=== PATIENT | male | born 1960 | race Two or more races ===

== ENCOUNTER → 2016-05-02 | Outpatient (REF) | payer OTHER ==
[2016-05-03 12:10] LABS: CALCIUM OXALATE CRYSTALS SMALL
== END ==
LOC: M LAB REF 15:53
PROVIDERS: ATTEND Nurse Practitioner Women's Health
DX: R97.20 Elevated prostate specific antigen [PSA] (principal)

== ENCOUNTER → 2016-05-23 | Outpatient (REF) | payer OTHER ==
[2016-05-23 13:44] LABS: BASO % 0.9 % (0.0-1.0); EOS # 0.2 K/mm3 (0.0-0.50); EOS % 3.4 % (0.0-3.0); LARGE UNSTAINED CELL # 0.1 K/mm3 (0.0-0.4); LARGE UNSTAINED CELL % 2.2 % (0.0-4.0); LYMPH # 0.9 K/mm3 (1.5-4.5); LYMPH % 16.7 % (24.0-44.0); MEAN CORPUSCULAR HEMOGLOBIN 32.6 pg (27.0-33.0); MEAN CORPUSCULAR HGB CONC 33.9 g/dl (32.0-36.5); MEAN CORPUSCULAR VOLUME 96.4 fl (80.0-96.0); MONO # 0.4 K/mm3 (0.0-0.8); MONO % 7.8 % (0.0-5.0); NEUTROPHILS # 3.4 K/mm3 (1.8-7.7); PLATELET COUNT, AUTOMATED 379 k/mm3 (150-450); RED CELL DISTRIBUTION WIDTH 12.4 % (11.5-14.5); WHITE BLOOD COUNT 4.9 K/mm3 (4.0-10.0)
[2016-05-23 13:55] LABS: FOLATE 9.3 NG/ML (>5.4); VITAMIN B12 LEVEL 285 PG/ML (247-911)
[2016-05-23 14:02] LABS: ALBUMIN/GLOBULIN RATIO 1.21 (1.00-1.93); ALKALINE PHOSPHATASE 112 U/L (45-117); ALT/SGPT 40 U/L (12-78); ANION GAP 8 MEQ/L (8-16); AST/SGOT 41 U/L (15-37); BILIRUBIN,TOTAL 0.5 MG/DL (0.2-1.0); BLOOD UREA NITROGEN 12 MG/DL (7-18); CALCIUM LEVEL 9.2 MG/DL (8.5-10.1); CARBON DIOXIDE LEVEL 27 MEQ/L (21-32); CHLORIDE LEVEL 88 MEQ/L (98-107); CREATININE FOR GFR 1.25 MG/DL (0.70-1.30); GLOMERULAR FILTRATION RATE > 60.0 (>56); GLUCOSE, FASTING 117 MG/DL (70-105); POTASSIUM SERUM 4.7 MEQ/L (3.5-5.1); SODIUM LEVEL 123 MEQ/L (136-145); TOTAL PROTEIN 7.3 GM/DL (6.4-8.2)
[2016-05-23 14:32] LABS: ERYTHROCYTE SEDIMENTATION RATE 15 mm/hr (0-20)
[2016-05-25 00:06] LABS: Lyme Disease IgG/IgM Antibodie <0.91 ISR (0.00-0.90); Lyme Disease IgM Ab Quantitati <0.80 index (0.00-0.79)
[2016-05-27 13:06] LABS: ALBUMIN 4.23 GM/DL (3.29-5.55); ALBUMIN % 57.9 % (55.8-66.1); GAMMA GLOBULIN % 15.5 % (11.1-18.8)
== END ==
LOC: M LABNEURO 12:50
PROVIDERS: ATTEND Psychiatry & Neurology Neurology
DX: G62.9 Polyneuropathy, unspecified (principal)

== ENCOUNTER → 2018-02-12 | Outpatient (REF) | payer OTHER ==
[2018-02-13 14:44] LABS: TOTAL PROTEIN,RANDOM URINE 25.1 MG/DL (0.0-12.0)
== END ==
LOC: M LAB REF 12:15
PROVIDERS: ATTEND Internal Medicine Nephrology
DX: E87.1 Hypo-osmolality and hyponatremia (principal)

== ENCOUNTER → 2018-12-18 | Outpatient (REF) | payer OTHER ==
[2018-12-18 17:27] LABS: CREATININE,RANDOM URINE 92.8 MG/DL; TOTAL PROTEIN,RANDOM URINE 9.8 MG/DL (0.0-12.0)
== END ==
LOC: M LAB REF 16:55
PROVIDERS: ATTEND Internal Medicine Nephrology
DX: E87.1 Hypo-osmolality and hyponatremia (principal)

== ENCOUNTER → 2018-12-29 | Outpatient (CLI) | payer OTHER ==
[~2018-12-29] MED LIST: ISOVUE-370 76% 100ML VIAL (Q9967) As Ordered ONE
--- NOTE | 2018-12-30 04:50 | REP ---
Clinical: Follow up abnormal findings. Technique: Axial noncontrast images from the thoracic inlet to the upper abdomen with coronal and sagittal re-formations. Comparison: 05/07/2016, 04/29/2011. Findings: The bilateral lung banda are well-aerated and clear. No consolidation, significant nodule or mass lesion appreciated. Small calcified granuloma in the anterior right upper lobe (image 38) noted. No effusion. No pneumothorax. No adenopathy. Thoracic aorta and pulmonary vasculature appear normal. Atherosclerotic changes to the coronary arteries noted without cardiomegaly or pericardial effusion. Limited upper abdomen demonstrates normal bilateral adrenal glands. Surrounding musculoskeletal structures are intact. Impression: No acute/significant mediastinal or pleuroparenchymal process appreciated. Electronically Signed by Domingo Parra MD 12/30/2018 04:41 A
== END ==
LOC: M RAD 08:52
PROVIDERS: ATTEND Internal Medicine Nephrology
DX: R91.8 Other nonspecific abnormal finding of lung field (principal)
CPT/HCPCS: 71260; Q9967

== ENCOUNTER → 2019-01-01 | Outpatient (REF) | payer OTHER ==
[2019-01-01 13:54] LABS: OSMOLALITY URINE 240 MOSM/KG (500-800)
[2019-01-01 14:06] LABS: CREATININE,RANDOM URINE < 13.0 MG/DL; SODIUM,RANDOM URINE 95 MEQ/L
== END ==
LOC: M LAB REF 12:56
PROVIDERS: ATTEND Internal Medicine Nephrology
DX: E87.1 Hypo-osmolality and hyponatremia (principal)

== ENCOUNTER → 2020-03-24 | Outpatient (CLI) | payer OTHER ==
[~2020-03-24] MED LIST changes: +B-12100021 PO; +CARV3.12 PO; -ISOVUE-370 76% 100ML VIAL (Q9967) As Ordered ONE; +SPIR-10 PO
== END ==
LOC: M LABSMTC 10:21
PROVIDERS: ATTEND Anesthesiology
DX: Z01.812 Encounter for preprocedural laboratory examination (principal); Z20.822 Contact with and (suspected) exposure to COVID-19

== ENCOUNTER 2020-03-29 10:59 | Day surgery (SDC) | payer OTHER ==
[~2020-03-29] VITALS: Ht 175.3 cm; Wt 81.6 kg
[~2020-03-29 10:59] MED LIST changes: +LIDOCAINE 2% 100MG/5ML SDV (FOR ANES.) As Ordered ONE; +NS 1,000 ML IV ONE; +propofoL 200 MG/20 ML VIAL As Ordered ONE
--- OUTSIDE RECORDS SUMMARY | 2020-03-29 11:04 | CCD ---
Author Author [facility] Organization [facility] Address Unknown Phone Unavailable Care Team Providers Care Population Health Coach Name Role Phone Fadumo, Tyler Norton PA-C Unavailable Unavailable Fadumo, Tyler Norton PA-C Unavailable Unavailable Fadumo, Tyler Norton PA-C Unavailable Unavailable Fadumo, Tyler Norton PA-C Unavailable Unavailable Fadumo, Tyler Norton PA-C Unavailable Unavailable Fadumo, Tyler Norton PA-C Unavailable Unavailable Fadumo, Tyler Norton PA-C Unavailable Unavailable Fadumo, Tyler Norton PA-C Unavailable Unavailable Fadumo, Tyler Norton PA-C Unavailable Unavailable Fadumo, Tyler Norton PA-C Unavailable Unavailable Fadumo, Tyler Norton PA-C Unavailable Unavailable REINALDO, F SARATH DO Unavailable Unavailable REINALDO, F SARATH DO Unavailable Unavailable REINALDO, F SARATH DO Unavailable Unavailable REINALDO, F SARATH DO Unavailable Unavailable REINALDO, F SARATH DO Unavailable Unavailable REINALDO, F SARATH DO Unavailable Unavailable REINALDO, F SARATH DO Unavailable Unavailable REINALDO, F SARATH DO Unavailable Unavailable REINALDO, F SARATH DO Unavailable Unavailable REINALDO, F SARATH DO Unavailable Unavailable REINALDO, F SARATH DO Unavailable Unavailable REINALDO, F SARATH DO Unavailable Unavailable REINALDO, F SARATH DO Unavailable Unavailable REINALDO, F SARATH DO Unavailable Unavailable REINALDO, F SARATH DO Unavailable Unavailable REINALDO, F SARATH DO Unavailable Unavailable REINALDO, F SARATH DO Unavailable Unavailable REINALDO, F SARATH DO Unavailable Unavailable REINALDO, F SARATH DO Unavailable Unavailable REINALDO, F SARATH DO Unavailable Unavailable REINALDO, F SARATH DO Unavailable Unavailable REINALDO, F SARATH DO Unavailable Unavailable REINALDO, F SARATH DO Unavailable Unavailable REINALDO, F SARATH DO Unavailable Unavailable REINALDO, F SARATH DO Unavailable Unavailable REINALDO, F SARATH DO Unavailable Unavailable REINALDO, F SARATH DO Unavailable Unavailable REINALDO, F SARATH DO Unavailable Unavailable REINALDO, F SARATH DO Unavailable Unavailable REINALDO, F SARATH DO Unavailable Unavailable REINALDO, F SARATH DO Unavailable Unavailable REINALDO, F SARATH DO Unavailable Unavailable Re-disclosure Warning The records that you are about to access may contain information from federally-assisted alcohol or drug abuse programs. If such information is present, then the following federally mandated warning applies: This information has been disclosed to you from records protected by federal confidentiality rules (42 CFR part 2). The federal rules prohibit you from making any further disclosure of this information unless further disclosure is expressly permitted by the written consent of the person to whom it pertains or as otherwise permitted by 42 CFR part 2. A general authorization for the release of medical or other information is NOT sufficient for this purpose. The Federal rules restrict any use of the information to criminally investigate or prosecute any alcohol or drug abuse patient.The records that you are about to access may contain highly sensitive health information, the redisclosure of which is protected by Article 27-F of the [facility] Public Health law. If you continue you may have access to information: Regarding HIV / AIDS; Provided by facilities licensed or operated by the [facility] Office of Mental Health; or Provided by the [facility] Office for People With Developmental Disabilities. If such information is present, then the following [facility] mandated warning applies: This information has been disclosed to you from confidential records which are protected by state law. State law prohibits you from making any further disclosure of this information without the specific written consent of the person to whom it pertains, or as otherwise permitted by law. Any unauthorized further disclosure in violation of state law may result in a fine or senior living sentence or both. A general authorization for the release of medical or other information is NOT sufficient authorization for further disc losure. Encounters Encounter Providers Location Date Indications Data Source(s ) Emergency Attender: SARATH GARCÍA DO 2019 07:17:00 PM EST - 04/10/2019 10:56:00 PM [facility] Patient discharged. Emergency Attender: Errol Thorne PA-C 09:54:00 AM EST - 04/04/2019 11:20:00 AM [facility] Patient discharged. Medications Medication Brand Name Start Date Product Form Dose Route Admi nistrative Instructions Pharmacy Instructions Status Indications Reaction Description Data Source(s) 4 mg 04/11/2019 12:00:00 AM EST tablet 12 TAKE ONE TABLET BY MOUTH THREE TIMES A DAY NEEDED FOR NAUSEA TAKE ONE TABLET BY MOUTH THREE TIMES A D AY NEEDED FOR NAUSEA SOLD: 04/11/2019 [facility] 20 mg 04/11/2019 12:00:00 AM EST capsule,delayed release (DR/EC) 30 TAKE ONE CAPSULE BY MOUTH EVERY DAY TAKE ONE CAPSULE BY MOUTH EVERY DAY SOLD: 04/11/2019 [facility] 4 mg 04/04/2019 12:00:00 AM EST tablet 9 TAKE ONE TABLET BY MOUTH EVERY 8 HOURS NEEDED FOR NAUSEA TAKE ONE TABLET BY MOUTH EVERY 8 HOURS A S NEEDED FOR NAUSEA SOLD: 04/04/2019 [facility] 1 gram 12/23/2018 12:00:00 AM EST tablet 60 TAKE ONE TABLET BY MOUTH TWICE A DAY TAKE ONE TABLET BY MOUTH TWICE A DAY SOLD: 02/23/2019 [facility] Insurance Providers Payer name Policy type / Coverage type Policy ID Covered libertarian ID Covered libertarian's relationship to manjarrez Policy Manjarrez Plan Information 'S ADMINISTRATION [id number] SP [id number] [facility] [id number] SP [id number] [facility] O [id number] S [id number] [facility] REG O [id number] S [id number] [facility] HUMANA - O/P [id number] 18 [id number] [facility] F [id number] SELF [id number] [place] F [id number] SELF [id number] [place] Claims F [id number] SELF [id number] Lidia [id number] [facility] [id number] SP [id number] PI PI N REGIONAL CLAIMS AUSTYN-O/P [id number] [id number] [facility] F [id number] SELF [id number] [employer]/ AD O [id number] S [id number] [facility] N REGIONAL CLAIMS AUSTYN-RECURRING [id number] 18 [id number] [facility] PI PI [facility] [id number] Lidia [id number] [facility] F [id number] SELF [id number] [facility] [id number] Lidia [id number] [facility] F [id number] SELF [id number] Problems, Conditions, and Diagnoses Code Display Name Description Problem Type Effective Dates Data Source(s) I10 Essential (primary) hypertension Essential (primary) h ypertension Diagnosis 04/10/2019 07:17:00 PM [facility] D40113 Nicotine dependence, cigarettes, uncompl icated Nicotine dependence, cigarettes, uncomplicated Diagnosis 04/10/2019 07:17:00 PM [facility] G8929 Other chronic pain Other chronic pain Diagnosis 07:17:00 PM [facility] R1084 Generalized abdominal pain Generalized abdominal pain Diagnosis 04/10/2019 07:17:00 PM [facility] R1010 Upper abdominal pain, unspecified Upper abdomina l pain, unspecified Diagnosis 04/10/2019 07:17:00 PM [facility] R1032 Left lower quadrant pain Left lower quadrant pain Diag nosis 04/04/2019 09:54:00 AM [facility] R1031 Right lower quadrant pain Right lower quadrant pain Di agnosis 04/04/2019 09:54:00 AM [facility] R1011 Right upper quadrant pain Right upper quadrant pain Di agnosis 04/04/2019 09:54:00 AM [facility] Results ID Date Data Source [id number] 03/24/2020 09:30:00 AM EST [facility] Name Value Range Interpretation Code Description Data Ruth rce(s) Supporting Document(s) SARS coronavirus 2 RNA Not Detected [facility] This lab was ordered by [facility] and reported by [facility]. ID Date Data Source [id number] 02/24/2020 12:00:00 AM EST [facility] Nils Licona MD Patient Name: MINAL WHITMORE Date of : 1960[place] [address] Date of Exam: 02/24/2020#: Fax: [phone] EXAM: CERVICAL SPINE (4 VIEWS) XRAYCLINICAL INFORMATION: Disability determination.Four views.There are no prior cervical spine xrays for comparison.There is moderate C5-6 and C6-7 disc space narrowing with bogmjihm-de-njjnvqnw disc space narrowing at all other levels. Vertebral bodyheight and alignment is within normal limits. The facet joints are wellaligned bilaterally. There is a slight levoconvex cervical curve.Calcifications are seen in the soft tissues in the paraspinal regionbilaterally.IMPRESSION:1. Chronic changes as described above.2. Soft tissue calcifications suggestive of carotid arterialcalcifications. Consider f ollowup with carotid ultrasound.ABHAY Brian/Scot you for referring ISABELLA WHITMORE to our office. Electronically Signed - YOLANDE DOYLE DO 02/24/20 13:15 Name Value Range Interpretation Code Description Data Ruth rce(s) Supporting Document(s) ID Date Data Source [id number] 06/14/2019 12:00:00 AM EDT [facility] Name Value Range Interpretation Code Description Data Ruth rce(s) Supporting Document(s) 2019 Novel Coronavirus RNA [facility] This lab was ordered by [facility] and reported by [facility]. ID Date Data Source [id number] 04/11/2019 01:05:00 PM [facility] [address] [address] RESPIRATORY CARE REPORT ==== ---------NAME------- NUMBER SEX AGE ADMIT DISC. XRAY# F/C TYPELEAKE ISABELLA Wilkes [id number] M 58 04/10/19 04/10/19 [id number] SB4 E/R DATE OF : 1960 M/R# [id number] #: [id number] LOCATION: EMERGENCY DEPT EKG [id number] COMPLE TE:04/11/19 01:11 VMT [id number] PHYSICIAN: REINALDO CALHOUN Name Value Range Interpretation Code Description Data Ruth rce(s) Supporting Document(s) ID Date Data Source [id number] 04/10/2019 07:17:00 PM EST [facility] 1 OrderSheet [facility] Emergency Department [address] [place] [address] Phone #: ext- [phone] 04/10/2019 19:13 Patient: ISABELLA WHITMORE Sex: M : 1960 Age: 58yWEIGHT:78.4 kg (S)ALLERGIES: No Known Drug AllergyCHIEF COMPLAINT: chest pain, upper abdominal painDIAGNOSIS: Abdominal painLAB ORDERSOrder Description Priority Entered Acknowledged InitialedAmylase STAT 19:49 04/10/2019 20:17 Saloni Gamez R.N. Physician;CBC w Diff STAT 19:49 04/10/2019 Ack'd: 20:08 Saloni 20:17 Saloni Gamez R.N. Physician;CMP STAT 19:49 04/10/2019 Ack'd: 20:08 Saloni 20:17 Saloni Gamez R.N. Physician;Lipase STAT 19:49 04/10/2019 Ack'd: 20:08 Saloni 20:17 Saloni Gamez R.N. Physician;Urinalysis (Clean STAT 19:49 04/10/2019 20:07 Saloni NixonirCjarrell) Sarath Gamez R.N. Physician;Troponin-T STAT 19:49 04/10/2019 Ack'd: 20:08 Saloni 20:17 Saloni Gamez R.N. Physician;H Pylori AB STAT 19:51 04/10/2019 Ack'd: 20:08 Saloni 20:17 Saloni Gamez R.N. Physician;Sed. Rate STAT 19:51 04/10/2019 Ack'd: 20:08 Saloni 20:17 Saloni Gamez RDelonte Physician;CRP STAT 19:51 04/10/2019 Ack'd: 20:08 Saloni 20:17 Saloni Gamez R.N. Physician;DIAGNOSTIC STUDY ORDERSOrder Description Priority Entered Acknowledged InitialedCT ABD PEL STAT 19:49 04/10/2019 Ack'd: 20:08 Saloni 21:56 Saloni Riojas 2 OrderSheet [facility] Emergency Department [address] [place] [address] Phone #: ext- [phone] 04/10/2019 19:13 Patient: ISABELLA WHITMORE Sex: M : 1960 Age: 58yW/Oral/IV Contrast Sarath Gamez R.N.(Oxygen?(No)) Physician;(IV?(Yes)) Reason for Study: Abdominal PainMEDICATION/IV/DRIP/FLUID ORDERSOrder Description Priority Entered Acknowledged InitialedIV NS : 250 mL/hr 19:49 04/10/2019 Ack'd: 20:07 Saloni 20:17 Saloni Riojas(NOW) Sarath Gamez R.N. Physician;Zofran IVP 4 mg 19:49 04/10/2019 Ack'd: 20:07 Saloni 20:17 Saloni Gamez R.N. Physician;Dilaudid IVP 1 mg 19:49 04/10/2019 Ack'd: 20:07 Saloni 20:20 Saloni Riojas(HIGH ALERT Sarath Gamez R.N.MEDICATION) Physician;GENERAL ORDERSOrder Description Priority Entered Acknowledged InitialedEKG 19:49 04/10/2019 20:07 Saloni Gamez R.N. Physician;[Electronically signed by Sarath García Physician (03:30 04/11/2019)][Electronically signed by Saloni Schrader R.N. (06:42 04/11/2019)][Electronically locked by Saloni Schrader R.N. (06:42 04/11/2019)] Name Value Range Interpretation Code Description Data Ruth rce(s) Supporting Document(s) ID Date Data Source [id number] 04/10/2019 07:17:00 PM EST [facility] 1 Medication Reconciliation Report [facility] Emergency Department [address] [place] [address] Phone #: itt- [phone] 04/10/2019 19:13 Patient: ISABELLA WHITMORE Sex: M : 1960 Age: 58yWeight: 78.4 kgHeight/Length: 69 in.BMI: 25.5ALLERGIES: No Known Drug AllergyThe patient's Home Medications are listed below:CONTINUE TAKING THE FOLLOWING MEDICATIONS: Lisinopril Oral 20 mg, dailyThe source(s) of the original Home Medication information:Not obtained.The following Medications were given to the patient in the Emergency Department:IV NS IV Fluids bolus 0, then 250 mL/hr, administered: 04/10/2019 8:13:00 PMZofran [IVP] IVP 4 mg, administered: 04/10/2019 8:17:00 PMDilaudid [IVP] IVP 4 mg, administered: 04/10/2019 8:20:00 PMThe following Medications were prescribed to the patient:Zofran 4 mg tablet Take 1 tablet three times a day as needed for 4 days -- for nausea. Dispense 12 tablet.Refills: 0. Substitution permitted.[employer] [address] [place] [address]. .Prilosec OTC 20 mg tablet,delayed release Take 1 tablet once a day for 30 days -- Dispense 30 tablet.Refills: 0. Substitution permitted.[employer] [address] [place] [phone]. . -- Sarath García, Physician Name Value Range Interpretation Code Description Data Ruth rce(s) Supporting Document(s) ID Date Data Source [id number] 04/10/2019 07:17:00 PM EST [facility] 1 Medication Administration Record [facility] Emergency Department [address] [place] [address] Phone #: ext- [phone] 04/10/2019 19:13 Patient: ISABELLA WHITMORE Sex: M : 1960 Age: 58yWeight: 78.4 kgHeight/Length: 69 inBMI: 25.5ALLERGIES: No Known Drug Allergy Date/Time Medication Administered Medication OrderedStart IV NS IV NS : 250 mL/hr (NOW)20:13 04/10/2019 Dose: IV FluidsSaloni Gamez R.N. Rate: 250 mL/hr---- Dispensed: 1000 mL bagStop Site: #1 left AC22:46 04/10/2019Tina Shine Gamez R.N.Given ZOFRAN [IVP] (ONDANSETRON HCL) Zofran IVP 4 mg20:17 04/10/2019 Dose: 4 mg IVPTina Shine Gamez R.N. Site: #1 left ACGiven DILAUDID [IVP] (HYDROMORPHONE Dilaudid IVP 1 mg (HIGH ALERT20:20 04/10/2019 HCL) MEDICATION)Saloni Shine Gamez R.N. Dose: 4 mg IVP Site: #1 left AC Name Value Range Interpretation Code Description Data Ruth rce(s) Supporting Document(s) ID Date Data Source [id number] 04/10/2019 07:17:00 PM EST [facility] 1 General Instructions [facility] Emergency Department [address] [place] [address] Phone #: ext- [phone] 04/10/2019 19:13 Patient: ISABELLA WHITMORE Sex: M : 1960 Age: 58yChronic generalized abdominal pain.INSTRUCTIONS(High fiber diet.).Warnings: Further evaluation is necessary (endoscopy GI referral).SEDATIVE MEDICATION: You were given sedative medication during your visit. Do not drive or operatedangerous machinery.GENERAL WARNINGS: Return or contact your physician immediately if your condition worsens orchanges unexpectedly, if not improving as expected, or if other problems arise.Your Current Medications: Your current home medications have been reviewed.CONTINUE TAKING THE FOLLOWING MEDICATIONS:Lisinopril Oral : 20 mg daily.Prescription Medications:Zofran 4 mg tablet Take 1 tablet three times a day as needed for 4 days -- for nausea. Dispense 12 tablet.Refills: 0. Substitution permitted.[employer] [address] [phone]. .Prilosec OTC 20 mg tablet,delayed release Take 1 tablet once a day for 30 days -- Dispense 30 tablet.Refills: 0. Substitution permitted.[facility] [address] [place] [phone]. .Understanding of the discharge instructions verbalized by patient.Follow-up with: [facility] [place], , , [address], , [place], [address] Follow up Friday in two days. Call for the next available appointment. Reason for referral: evaluation.Summary of care provided to patient and family via paper. ADDITIONAL INFORMATIONUnknown Causes of Abdominal Pain (Male) 2 General Instructions [facility] Emergency Department [address] [place] [address] Phone #: ext- [phone] 04/10/2019 19:13 Patient: ISABELLA WHITMORE Sex: M : 1960 Age: 58yBased on your visit today, the exact cause of your abdominal pain is not clear. Your exam and testsdon't suggest a dangerous cause at this time. However, the signs of a serious problem may takemore time to appear. Although your evaluation was reassuring today, sometimes early in the courseof many conditions, exam and lab tests can appear normal. Therefore, it is important for you to watchfor any new symptoms or worsening of your condition.It may not be obvious what caused your symptoms. Pay attention to things that do seem to makeyour symptoms worse or better and discuss this with your doctor when you follow up.The evaluation of abdominal pain in the emergency department may only require an exam by thedoctor or it may include blood, urine or imaging studies, depending on many factors. Sometimesexams and tests can identify a cause but in many cases, a clear cause is not found. Further testing atfollow up visits may help to suggest a clear diagnosis.Home care Rest as much as you can until your next exam. Try to avoid any medicines (unless otherwise directed by your doctor), foods, activities, or other factors that may have contributed to your symptoms. Try to eat foods that you know that you have tolerated well in the past. Certain diets may be recommended for some conditions that cause abdominal pain. However, since the cause of your symptoms may not be clear, discuss your diet more with your healthcare provider or specialist for further recommendations. If you have diarrhea, it may help to avoid dairy (lactose) for the time being. A low fat, low fiber diet can also help. Eating several small meals per day as opposed to 2 or 3 larger meals may help. Avoid dehydration. Make sure to drink plenty of water. Other options include broth, soup, gelatin, sports drinks, or other clear liquids. Watch closely for anything that may make your symptoms worse or better. Pay close attention to symptoms below that may mean your condition is getting worse.Follow-up careFollow up with your healthcare provider if your symptoms are not improving, or as advised. In somecases, you may need more testing.When to seek medical adviceCall your healthcare provider right away if any of these occur: 3 General Instructions [facility] Emergency Department [address] [place] [address] Phone #: ext- [phone] 04/10/2019 19:13 Patient: ISABELLA WHITMORE Sex: M : 1960 Age: 58y Pain is becoming worse You are unable to take your medicines or can't keep water down due to excessive vomiting Swelling of the abdomen Fever of 100.4F (38C) or higher, or as directed by your healthcare provider Blood in vomit or bowel movements (dark red or black color) Jaundice (yellow color of eyes and skin) New onset of weakness, dizziness or fainting New onset of chest, arm, back, neck or jaw pain [id number] [employer]. [address] [place] [address]. All rights reserved. This information is not intended as asubstitute for professional medical care. Always follow your healthcare professional's instructions. You have been given the following additional information: Unknown Causes of Abdominal Pain (Male)(Electronically signed by Sarath García, Physician 04/11/2019 03:30) Name Value Range Interpretation Code Description Data Ruth rce(s) Supporting Document(s) ID Date Data Source [id number] 04/10/2019 07:17:00 PM EST [facility] 1 Clinical Report - Nurses [facility] Emergency Department [address] [place] [address] Phone #: [phone]- [phone] 04/10/2019 19:13 Patient: ISABELLA WHITMORE Sex: M : 1960 Age: 58yTRIAGEArrived by private vehicle. Historian: patient. Accompanied by spouse.Triage time: 19:15 04/10/2019.Chief Complaint: CHEST PAIN and BACK PAIN (diffuse abd pain, constipation).Onset. (abdominal pain for "weeks", chest pain for 1 week). ( seen here Friday and yesterday by PCP.Given "Powder to make him Poop", had a small BM yesterday). --19:25 04/10/19 Saloni Gamez R.N.Acuity: LEVEL 2.The patient has had a cough productive of yellow sputum. No fever.SEPSIS SCREEN: Negative (no infection suspected/documented). --19:31 04/10/19 Saloni Gamez R.N.19:29 04/10/19. BP: 142/97. MAP: 112. HR: 87. RR: 16. O2 saturation: 100%. Temp: 95.9 F. Pain levelnow: 10/27. --19:31 04/10/19 Saloni Gamez R.N.Weight: 78.4 kg stated. Height/Length: 69 inches Per Patient. BMI: 25.5. --19:18 04/10/19 Saloni Reeves R.N.MedicationsLisinopril Oral 20 mg, daily. --19:04/10/19 Saloni Gamez R.N.AllergiesNo Known Drug Allergy. --19:04/10/19 Saloni Gamez R.N.PROBLEMS:Back Pain.Abdominal Pain.Hypertension. --19:04/10/19 Saloni Gamez R.N.ADDITIONAL SURGERIES:Back Surgery. --19:04/10/19 Saloni Gamez R.N.HistoryPAST MEDICAL HX: No history of diabetes mellitus, heart disease or lung disease. Last oral intake bypatient was (Reports that he had pineapple for lunch and an omelet for breakfast).SOCIAL HX: Alcohol use. (Heavy use up until 1 month ago, Matthew Cooper and/or Beer). No drug use. Hewas offered HIV testing but declined and hepatitis C testing but declined. He has not traveled outside the.. 2 Clinical Report - Nurses [facility] Emergency Department [address] [place] [address] Phone #: ext- [phone] 04/10/2019 19:13 Patient: ISABELLA WHITMORE Sex: M : 1960 Age: 58y Infectious disease exposure: No infectious disease exposure. (has not been exposed to anyone who traveled to [place] in the past month). SELF HARM ASSESSMENT: Self harm assessment was performed. The patient answered "no" to the question(s) "Do you have thoughts of harming or killing yourself?" and "Have you recently had thoughts about harming or killing others?". ABUSE ASSESSMENT: No report of abuse. FALL RISK ASSESSMENT: Fall risk assessment completed. Risk factors identified include severe pain, nausea and dizziness. --19:31 04/10/19 Saloni Gamez R.N. SOCIAL HX: Current every day light tobacco smoker- less than 1/2 a pack per day. --20:21 04/10/19 Saloni Gamez R.N. SOCIAL HX: Smoker- current status unknown (smoking cessation information given.). --20:22 04/10/19 Saloni Gamez R.N. FAMILY HX: Negative. --19:42 04/10/19 Sarath García Physician.PHYSICAL [id number]:21 04/10/19. Ambulatory to room.GENERAL / NEURO / PSYCH: Alert. Oriented X 4. Appears anxious.HEENT: Mucous membranes are pink.RESPIRATORY: Respirations not labored.CVS: Normal sinus rhythm noted. Pulses within normal limits. Capillary refill less than 2 seconds.GI / : The patient has had nausea. Abdominal distention. Abdominal tenderness.EXTREMITIES: No lower extremity edema.SKIN: Skin is warm and dry. --20:21 04/10/19 Saolni Gamez R.N.NURSING PROGRESS NOTES19:17 04/10/19. Monitoring of patient in place. Patient gowned. Reassurance given. Call light placedin reach. Bed placed in lowest position. Brakes of bed on. --20:18 04/10/19 Saloni Gamez R.N. 19:53 04/10/19. Clean catch urine collected; sample sent to lab for urinalysis. Specimen labeled in the presence of the patient. --20:18 04/10/19 Saloni Gamez R.N. 20:11 04/10/2019 Site #1 started via IV in the left antecubital space with an 20g angiocath; three attempts. Saline lock flushed with 10 mL saline. --20:16 04/10/19 Saloni Gamez R.N. 20:13 04/10/2019 Started bag #1 1000 mL IV Fluids IV NS; at 250 mL/hr via site #1 via IV pump. Allergies verified and confirmed 5 rights. IV patency established. IV site checked: no pain, redness, or swelling. IV flushed thoroughly pre- and post-medication administration. Information reviewed with patient including reason for taking this medication. Verbalizes understanding. --20:17 04/10/19 Saloni Gamez R.N. 3 Clinical Report - Nurses [facility] Emergency Department [address] [place] [address] Phone #: ext- [phone] 04/10/2019 19:13 Patient: ISABELLA WHITMORE Sex: M : 1960 Age: 58y 20:17 04/10/2019 Zofran (Ondansetron HCl) IVP 4 mg given over 2 minute(s) via site #1. Allergies verified and confirmed 5 rights. IV patency established. IV site checked: no pain, redness, or swelling. IV flushed thoroughly pre- and post-medication administration. IVP given by RN. Information reviewed with patient. --20:17 04/10/19 Saloni Gamez R.N. Blood samples drawn by lab. --20:18 04/10/19 Saloni Gamez R.N. Reassurance given to the patient. The patient is resting quietly. Overall patient status is improved. ( Sipping gastro prep for CT scan.). RESPIRATORY: No respiratory distress. GI / : The patient reports nausea. SKIN: Skin is warm and dry. --20:19 04/10/19 Saloni Gamez R.N. 20:20 04/10/2019 Dilaudid (HYDROmorphone HCl) IVP 4 mg given over 5 minute(s) via site #1. IV patency established. IV site checked: no pain, redness, or swelling. IV flushed thoroughly pre- and post-medication administration. IVP given by RN. Information reviewed with patient and spouse including reason for taking this medication, precautions and sedative warning (diluted in 10 ml NS). --20:20 04/10/19 Saloni Gamez R.N. Patient transported to [place] by wheelchair with radiology clerk. --21:22 04/10/19 Noel Gamez RN 20:55 04/10/2019 Dilaudid IVP Response: no adverse reaction pain is improving. --22:55 04/10/19 Saloni Gamez R.N. 22:46 04/10/2019 IV Fluids IV NS via IV site #1 Discontinued: discontinued upon discharge. Total amount infused: 500 mL. IV patency established. IV site checked: no pain, redne ss, or swelling. IV flushed thoroughly. --22:56 04/10/19 Saloni Gamez R.N.DISPOSITION / DISCHARGE 22:45 04/10/2019 Site #1 removed upon discharge. Bandage applied. --22:50 04/10/19 Saloni Gamez R.N. Condition at departure: improved and stable. --22:50 04/10/19 Saloni Gamez R.N. 22:49 04/10/19. BP: 154/104. MAP: 120. HR: 79. RR: 16. O2 saturation: 99%. Temp: 96.2 F. Pain level now: 04/26. --22:50 04/10/19 Saloni Gamez R.N. Departure time: 22:55 04/10/2019. Reviewed medication(s). Prescription(s) sent electronically to pharmacy. Patient and spouse verbalized understanding. Written instructions provided in Greenlandic. The patient was discharged by the physician. He was discharged home and accompanied by spouse. He left ambulatory and via private vehicle. Spouse driving. --22:55 04/10/19 Saloni Gamez R.N. 4 Clinical Report - Nurses [facility] Emergency Department [address] [place] [address] Phone #: ext- [phone] 04/10/2019 19:13 Patient: ISABELLA WHITMORE Sex: M : 1960 Age: 58yLocked/Released at 04/11/2019 06:42 by Saloni Gamez R.N. Name Value Range Interpretation Code Description Data Ruth rce(s) Supporting Document(s) ID Date Data Source [id number] 0001 04/10/2019 07:17:00 PM [facility] 1 Clinical Report - Physicians/Mid Levels [facility] Emergency Department [address] [place] [address] Phone #: ext- [phone] 04/10/2019 19:13 Patient: ISABLELA WHITMORE Sex: M : 1960 Age: 58y Time Seen: 19:28 04/10/2019. Arrived- By private vehicle. Historian- patient. Disposition decision: 22:45 04/10/2019.HISTORY OF PRESENT ILLNESS Chief Complaint: CHEST PAIN. UPPER ABDOMINAL PAIN. This started weeks ago and is still present. It is described as "pain". No radiation. It is described as located in the upper abdomen, right part of the abdomen and lower quadrant of the abdomen and left part of the abdomen and lower quadrant of the abdomen and across the abdomen. At its maximum, severity described as 9 / 10. When seen in the E.D., severity described as 7 / 10. Modifying factors- worsened by exertion, movement, walking, cough and food. Not relieved by anything. The patient has had nausea. No vomiting, difficulty breathing or diaphoresis. Similar symptoms previously. Recent medical care: The patient was seen recently in the emergency department and office. ( ED last week and Vera yesterday).REVIEW OF SYSTEMSNo fever, chills, cough, pedal edema or calf pain. No fainting episodes, headache, sore throat, blurredvision or black stools. No difficulty with urination, skin rash, enlarged lymph nodes or bloody stools. Thepatient has had abdominal pain and joint pain (chronic back pain.). All other systems reviewed and arenega tive.PAST HISTORYProblems:Back Pain.Abdominal Pain.Hypertension. Additional Surgeries: Back Surgery. Medications: Lisinopril Oral 20 mg, daily. Allergies: No Known Drug Allergy.SOCIAL HISTORYLight tobacco smoker (cigarette)- less than 1/2 a pack per day. No alcohol use or drug use. No recenttravel. 2 Clinical Report - Physicians/Mid Levels [facility] Emergency Department [address] [place] [address] Phone #: ext- [phone] 04/10/2019 19:13 Patient: ISABELLA WHITMORE Sex: M : 1960 Age: 58yFAMILY HISTORYNegative.ADDITIONAL NOTESThe nursing notes have been reviewed with agreement regarding the chief complaint, HPI, ROS, PMH andpatient medications and allergies.PHYSICAL EXAMVital Signs: 04/10/2019 19:29 BP: 142/97. MAP: 112. HR: 87. RR: 16. O2 saturation: 100%. Temp: 95.9F. Pain level now: 9/10. Have been reviewed as abnormal. Hypertensive. Heart rate normal.Respiratory rate normal. Temperature normal. Oxygen saturation normal.Appearance: Alert. Oriented X3. Anxious. Appears to be in pain. Patient in moderate distress.Eyes: Pupils equal, round and reactive to light. Eyes normal inspection.ENT: Ears normal. Nose normal. Pharynx normal.Neck: Normal inspection. Neck supple.CVS: Normal heart rate and rhythm.Respiratory: No respiratory distress. Breath sounds normal. Chest nontender.Abdomen: Soft. Moderate tenderness diffusely. Bowel sounds normal. No organomegaly. No mass.Femoral pulses equal.Back: Normal external inspection.Skin: Skin warm and dry. Normal skin color. No rash. Normal skin turgor.Extremities: Extremities exhibit normal ROM. No lower extremity edema.Neuro: Oriented X 3. No motor deficit. No sensory deficit.LABS, X-RAYS, AND EKGEKG: Normal EKG(good tracing): independently viewed by me. Normal sinus rhythm. Normal NV interval.Normal QRS complexes. Normal STs and T waves. No ectopy.Laboratory Tests: Laboratory tests have been ordered, with results reviewed and considered in themedical decision making process. H Pylori AB: (KYLE: 04/10/2019 20:24) ( [facility] 04/10/2019 21:17) Final results Test Result Flag Units (Reference) H. PYLORI NEGATIVE (NORMAL: NEGAT H. PYLORI REENTER NEGATIVE (NORMAL: NEGAT { PROCEDURAL CONTROL VALID ){ KIT LOT # [id number] ){ KIT EXP DATE [id number] ) Sed. Rate: (KYLE: 04/10/2019 20:24) ( [facility] [place] 04/10/2019 21:29) Final results Test Result Flag Units (Reference) SED RATE 17 mm/hr (0 - 20) SED RATE REENTER 17 CRP: (KYLE: 04/10/2019 20:24) ( [facility] [place] 04/10/2019 21:09) Final results Test Result Flag Units (Reference) CRP-HS 2.40 MG/L (1.00 - 3.00) CDC/AHS HS-CRP CUT-OFF: RELATIVE RISK: <1.0 mg/L Low 1.0 - 3.0 mg/L Average >3.0 mg/L High Optimally, the average of HS-CRP results repeated two weeks apart should be used for risk assessment. 3 Clinical Report - Physicians/Mid Levels [facility] Emergency Department [address] [place] [address] Phone #: ext- [phone] 04/10/2019 19:13 Patient: ISABELLA WHITMORE Sex: M : 1960 Age: 58yAmylase: (KYLE: 04/10/2019 20:24) ( MsgRcvd 04/10/2019 21:08) Final results Test Result Flag Units (Reference) AMYLASE 47 U/L (30 - 110)CBC w Diff: (KYLE: 04/10/2019 20:24) ( MsgRcvd 04/10/2019 20:44) Final results Test Result Flag Units (Reference) CBC W/AUTOMATED DIFF COMPLETE BLOOD COUNT WBC 7.0 10/uL (4.2 - 11.0) RBC 4.39 L 10/uL (4.50 - 6.30) HEMOGLOBIN 13.6 L g/dL (14.0 - 16.0) HEMATOCRIT 39.6 L % (41.0 - 51.0) MCV 90.2 fL (80.0 - 94.0) MCH 31.0 pg (27.0 - 34.0) MCHC 34.3 g/dL (31.0 - 36.0) RDW 12.0 % (11.5 - 14.8) PLATELETS 304 10/uL (150 - 450) MPV 9.7 fL (7.4 - 10.4) NEUT 53.0 % (37.0 - 80.0) LYMPH 32.3 % (25.0 - 40.0) MONO 12.4 H % (3.0 - 8.0) EOS 1.0 % (0.0 - 7.0) BASO 1.0 % (0.0 - 2.0) %IG 0.3 H % (0.0 - 0.0) %NRBC 0.0 % (0.0 - 0.0) #NEUT 3.69 10/uL (2.00 - 6.90) #LYMPH 2.25 10/uL (0.60 - 3.40) #MONO 0.86 10/uL (0.00 - 0.90) #EOS 0.07 10/uL (0.00 - 0.70) #BASO 0.07 10/uL (0.00 - 0.20) #IG 0.02 10/uL (0.00 - 0.10) #NRBC 0.00 10/uL (0.00 - 0.00) MANUAL DIFF NOT INDICATED RBC MORPH NOT INDICATEDCMP: (KYLE: 04/10/2019 20:24) ( MsgRcvd 04/10/2019 21:08) Final results Test Result Flag Units (Reference) COMPREHENSIVE METABOLIC PANEL COMPREHENSIVE METABOLIC PANEL SODIUM 138 mEq/L (134 - 153) POTASSIUM 4.1 mEq/L (3.6 - 5.0) CHLORIDE 98 mEq/L (98 - 107) CO2 26 MEQ/L (22 - 30) GLUCOSE 99 MG/DL (65 - 110) BUN 16 MG/DL (7 - 21) CREATININE 1.0 MG/DL (0.7 - 1.5) BUN/CREAT 16 (8 - 27) TOTAL PROTEIN 7.0 G/DL (6.3 - 8.2) ALBUMIN 4.1 G/DL (3.9 - 5.0) GLOBULIN 2.9 GM/DL (2.4 - 3.2) A/G RATIO 1.4 (0.8 - 2.0) CALCIUM 9.9 MG/DL (8.4 - 10.2) TOTAL BILI <0.7 MG/DL (0.2 - 1.3) ALKALINE PHOS 95 U/L (38 - 126) SGOT/AST 16 U/L (5 - 40) SGPT/ALT 18 U/L (7 - 56) ANION GAP 14.0 mmol/L (8.0 - 16.0) AGE 58 yrs NON-AA GFR >60 mL/min AFR AMER GFR >60 mL/min Male GFR Interprentation 20-49 yrs >60 mL/min Cuyrjw95-47 yrs >56 mL/min Normal 60-69 yrs >49 mL/min Normal 70-79yrs>42 mL/min Normal 80 and above >35 mL/min Normal Female GFR 4 Clinical Report - Physicians/Mid Levels [facility] Emergency Department [address] [place] [address] Phone #: ext- [phone] 04/10/2019 19:13 Patient: ISABELLA WHITMORE Sex: M : 1960 Age: 58yInterpretation 20-39 yrs >60 mL/min Normal 40-49 yrs >58 mL/minNormal 50-59 yrs >51 mL/min Normal 60-69 yrs >45 mL/min Cxaqsx31-75 yrs >39 mL/min Normal 80 and above >32 mL/min NormalLipase: (KYLE: 04/10/2019 20:24) ( AlgRcvd 04/10/2019 21:09) Final results Test Result Flag Units (Reference) LIPASE 16 U/L (13 - 60)Urinalysis: (KYLE: 04/10/2019 19:55) ( MsgRcvd 04/10/2019 20:28) Final results Test Result Flag Units (Reference) URINALYSIS URINALYSIS SOURCE R COLOR yellow (NORMAL: Yello CLARITY clear (NORMAL: Clear SPEC GRAVITY 1.030 (1.001 - 1.030 pH 6 (5 - 9) GLUCOSE NORM (NORMAL: Negat BILIRUBIN NEG (NORMAL: Negat KETONE 50 A (NORMAL: Negat PROTEIN NEG (NORMAL: Negat NITRITE NEG (NORMAL: Negat BLOOD NEG (NORMAL: Negat LEUK EST NEG (NORMAL: Negat UROBILINOGEN NOR (less than 1.0 MICROSCOPIC Not IndicateTroponin-T: (KYLE: 04/10/2019 20:24) ( MsgRcvd 04/10/2019 21:32) Final results Test Result Flag Units (Reference) TROPONIN T 0.01 NG/ML (0.00 - 0.10) TROPONIN T0.1 ng/ml Recommended as the clinical threshold value forTroponin T.CT ABD PEL W/Oral/IV Contrast: (KYLE: 04/10/2019 19:49) ( MsgRcvd 04/10/2019 22:18) Finalresults Exam CT ABD //T// PELV W/ORAL/IV CONTRAST [facility] [address] [place] [address] ---------NAME--------- NUMBER SEX AGE ADMIT DISC. XRAY# F/C TYPE HAIM ISABELLA A [id number] M 58 04/10/19 [id number] SB4 E/R DATE OF : 1960 M/R# [id number] #: [id number] TR-06 LOCATION: EMERGENCY DEPT TRANSCRIBED: 04/10/19 22:[address] ABD //T// PELV W/ORAL/IV [id number] COMPLETED:04/10/19 21:41 [facility] [place] [id number] Reason(s): Abdominal Pain PHYSICIAN: REINALDO PA R A D I O L O G Y R E P O R T PATIENT HISTORY: abd pain / O-MAR, SAGITTAL, O-MAR. Compare with non-O-MAR images (DICOM Hx) CT ABDOMEN AND PELVIS WITH CONTRAST COMPARISON: None HISTORY: Abd pain TECHNIQUE: CT images through the abdomen and pelvis obtained with intravenous contrast. With; isovue 370 5 Clinical Report - Physicians/Mid Levels [facility] Emergency Department [address] [place] [address] Phone #: ext- [phone] 04/10/2019 19:13 Patient: ISABELLA WHITMORE Sex: M : 1960 Age: 58y FINDINGS: Minimal bibasal atelectasis. Heart size normal. Abdomen: Liver, spleen, adrenals, pancreas, gallbladder unremarkable. No hydronephrosis or urinary stone. Pelvis: Normal caliber appendix. No bowel obstruction. No aortic dissection or aneurysm. No free fluid or free air. There is a bone graft site in the left iliac. Postsurgical and degenerative changes of the lumbar spine. IMPRESSIONS: No acute abnormality identified. Incidental findings, as above. While performing the above CT examination, radiation dose reduction was accomplished utilizing automated exposure control, adjusting of the mA and kV based on the patient's body size and/or the use of imperative reconstructive techniques. Electronically Signed By: Osorio Smallwood M.D. , Radiologist Date/Time: 04/10/19 22:17.PROGRESS AND PROCEDURESCourse of Care: 19:53 Apr 10 2019. (Patient's history obtained and exam completed. Treatment plandiscussed and agreed upon after benefits verses risks discussion. CT abdo/pelvis. Labs, urine and CTabd/pelvis and UA ordered. IV fluids zofran and dilaudid ordered.). (Patient feeling better explained all results. recommended high fiber diet and to follow up Friday with PMD foe referral to GI for upper and lower endoscopy. Return if worsen. Proscribe Zofran 4 mg prn and Prilosec 20 mg Daily. Return if worsen.). Disposition: Condition: stable.CLINICAL IMPRESSION Chronic generalized abdominal pain.INSTRUC TIONS (High fiber diet.). Warnings: Further evaluation is necessary (endoscopy GI referral). SEDATIVE MEDICATION: You were given sedative medication during your visit. Do not drive or operate dangerous machinery. 6 Clinical Report - Physicians/Mid Levels [facility] Emergency Department [address] [place], [place] [address] Phone #: ext- [phone] 04/10/2019 19:13 Patient: ISABELLA WHITMORE Sex: M : 1960 Age: 58y GENERAL WARNINGS: Return or contact your physician immediately if your condition worsens or changes unexpectedly, if not improving as expected, or if other problems arise. Your Current Medications: Your current home medications have been reviewed. CONTINUE TAKING THE FOLLOWING MEDICATIONS: Lisinopril Oral : 20 mg daily. Prescription Medications: Zofran 4 mg tablet Take 1 tablet three times a day as needed for 4 days -- for nausea. Dispense 12 tablet. Refills: 0. Substitution permitted. [employer] [address] [phone]. . Prilosec OTC 20 mg tablet,delayed release Take 1 tablet once a day for 30 days -- Dispense 30 tablet. Refills: 0. Substitution permitted. [employer] [address] [place] [phone]. . Understanding of the discharge instructions verbalized by patient. [facility] with[facility] [place] [place], , , [address], , [place], [address] Follow up Friday in two days. Call for the next available appointment. Reason for referral: evaluation. Summary of care provided to patient and family via paper.(Electronically signed by Sarath García Physician 04/11/2019 03:30) Name Value Range Interpretation Code Description Data Ruth rce(s) Supporting Document(s) ID Date Data Source [id number] 04/10/2019 10:17:00 PM EST [address] [place] [address] ---------NAME--------- NUMBER SEX AGE ADMIT DISC. XRAY# F/C TYPE HAIM Wilkes [id number] M 58 04/10/19 [id number] SB4 E/R DATE OF : 1960 M/R# [id number] #: [id number] TR-06 LOCATION: EMERGENCY DEPT TRANSCRIBED: 04/10/19 22:[address] ABD //T// PELV W/ORAL/IV [id number] COMPLETED:04/10/19 21:41 [facility] [place] [id number] Reason(s): Abdominal Pain PHYSICIAN: REINALDO CALHOUN======= R A D I O L O G Y R E P O R T PATIENT HISTORY:abd pain / O-MAR, SAGITTAL, O-MAR. Compare with non-O-MAR images (DICOM Hx)CT ABDOMEN AND PELVIS WITH CONTRASTCOMPARISON: NoneHISTORY: Abd painTECHNIQUE:CT images through the abdomen and pelvis obtained with intravenous contrast.With; isovue 370FINDINGS:Minimal bibasal atelectasis. Heart size normal.Abdomen: Liver, spleen, adrenals, pancreas, gallbladder unremarkable. Nohydronephrosis or urinary stone.Pelvis: Normal caliber appendix. No bowel obstruction. No aortic dissection oraneurysm. No free fluid or free air.There is a bone graft site in the left iliac. Postsurgical and degenerativechanges of the lumbar spine.IMPRESSIONS:No acute abnormality identified. Incidental findings, as above.While performing the above CT examination, radiation dose reduction wasaccomplished utilizing automated exposure control, adjusting of the mA and kVbased on the patient's body size and/or the use of imperative reconstructivetechniques.Electronically Signed By:Osorio Smallwood M.D. , RadiologistDate/Time: 04/10/19 22:17 Name Value Range Interpretation Code Description Data Ruth rce(s) Supporting Document(s) ID Date Data Source [id number] 04/10/2019 09:32:00 PM [facility] Name Value Range Interpretation Code Description Data Ruth rce(s) Supporting Document(s) TROPONIN T 0.01 NG/ML 0.00 - 0.10 [facility] spital TROPONIN T0.1 ng/ml Recommended as the c linical threshold value forTroponin T. ID Date Data Source [id number] 04/10/2019 09:29:00 PM [facility] Name Value Range Interpretation Code Description Data Ruth rce(s) Supporting Document(s) Erythrocyte sedimentation rate by Westergren method 17 mm/hr 0 - 20 [facility] SED RATE REENTER 17 [facility] ID Date Data Source [id number] 04/10/2019 09:17:00 PM [facility] Name Value Range Interpretation Code Description Data [facility] rce(s) Supporting Document(s) H. PYLORI NEGATIVE NORMAL: NEGATIVE [facility] H. PYLORI REENTER NEGATIVE NORMAL: NEGATIVE [facility] { PROCEDURAL CONTROL VALID ){ KIT LOT # [id number] ){ KIT EXP DATE ) ID Date Data Source [id number] 04/10/2019 09:08:00 PM [facility] Name Value Range Interpretation Code Description Data Ruth rce(s) Supporting Document(s) C reactive protein [Mass/volume] in Serum or Plasma by High sensitivity method 2.40 MG/L 1.00 - 3.00 [facility] CDC/S HS-CRP CUT-OFF: RELATIVE RISK: <1.0 mg/L Low 1.0 - 3.0 mg/L Average >3.0 mg/L High Optimally, the average of HS-CRP results repeated two weeks apart should be used for risk assessment. ID Date Data Source [id number] 04/10/2019 09:08:00 PM [facility] Name Value Range Interpretation Code Description Data Ruth rce(s) Supporting Document(s) Lipase [Enzymatic activity/volume] in Serum or Plasma 16 U/L 13 - 60 [facility] ID Date Data Source [id number] 04/10/2019 09:08:00 PM [facility] Name Value Range Interpretation Code Description Data Ruth rce(s) Supporting Document(s) COMPREHENSIVE METABOLIC PANEL [facility] COMPREHENSIVE METABOLIC PANEL Sodium [Moles/volume] in Serum or Plasma 138 mEq/L 134 - 153 [facility] Potassium [Moles/volume] in Serum or Plasma 4.1 mEq/L 3.6 - 5.0 [facility] Chloride [Moles/volume] in Serum or Plasma 98 mEq/L 98 - 107 [facility] Carbon dioxide, total [Moles/volume] in Serum or Plasma 26 MEQ/L 22 - 30 [facility] Glucose [Mass/volume] in Serum or Plasma 99 MG/DL 65 - 110 [facility] BUN 16 MG/DL 7 - 21 [facility] Creatinine [Mass/volume] in Serum or Plasma 1.0 MG/DL 0.7 - 1.5 [facility] BUN/CREAT 16 8 - 27 [facility] Protein [Mass/volume] in Serum or Plasma 7.0 G/DL 6.3 - 8.2 [facility] Albumin [Mass/volume] in Serum or Plasma 4.1 G/DL 3.9 - 5.0 [facility] Globulin [Mass/volume] in Serum by calculation 2.9 GM/DL 2.4 - 3.2 [facility] A/G RATIO 1.4 0.8 - 2.0 [facility] Calcium [Mass/volume] in Serum or Plasma 9.9 MG/DL 8.4 - 10.2 [facility] Bilirubin.total [Mass/volume] in Serum or Plasma <0.7 MG/DL 0.2 - 1.3 [facility] Alkaline phosphatase [Enzymatic activity/volume] in Serum or Plasma 95 U/L 38 - 126 [facility] Aspartate aminotransferase [Enzymatic activity/volume] in Serum or Plasma 16 U/L 5 - 40 [facility] Alanine aminotransferase [Enzymatic activity/volume] in Seru m or Plasma 18 U/L 7 - 56 [facility] Anion gap 3 in Serum or Plasma 14.0 mmol/L 8.0 - 16.0 [facility] AGE 58 yrs [facility] Hospit al NON-AA GFR >60 mL/min [facility] Hosp ital AFR AMER GFR >60 mL/min [facility] Ho spital Male GFR In terprentation 20-49 yrs >60 mL/min Normal 50-59 yrs >56 mL/min Normal 60-69 yrs >49 mL/min Normal 70-79yrs >42 mL/min Normal 80 and above >35 mL/min Normal Female GFR Interpretation 20-39 yrs >60 mL/min Normal 40-49 yrs >58 mL/min Normal 50-59 yrs >51 mL/min Normal 60-69 yrs >45 mL/min Normal 70-79 yrs >39 mL/min Normal 80 and above >32 mL/min Normal ID Date Data Source [id number] 04/10/2019 09:08:00 PM [facility] Name Value Range Interpretation Code Description Data Ruth rce(s) Supporting Document(s) Amylase [Enzymatic activity/volume] in Serum or Plasma 47 U/L 30 - 110 [facility] ID Date Data Source [id number] 04/10/2019 08:44:00 PM [facility] Name Value Range Interpretation Code Description Data Ruth rce(s) Supporting Document(s) CBC W/AUTOMATED DIFF [facility] COMPLETE BLOOD COUNT Leukocytes [#/volume] in Blood by Automated count 7.0 10^3/uL 4.2 - 1 1.0 [facility] Erythrocytes [#/volume] in Blood by Automated count 4.39 10^6/uL 4. 50 - 6.30 L [facility] Hemoglobin [Mass/volume] in Blood 13.6 g/dL 14.0 - 16.0 L [facility] Hematocrit [Volume Fraction] of Blood by Automated count 39.6 % 4 1.0 - 51.0 L [facility] Erythrocyte mean corpuscular volume [Entitic volume] by Auto mated count 90.2 fL 80.0 - 94.0 [facility] Erythrocyte mean corpuscular hemoglobin [Entitic mass] by Automated count 31.0 pg 27.0 - 34.0 [facility] Erythrocyte mean corpuscular hemoglobin concentration [Mass/volume] by Automated count 34.3 g/dL 31.0 - 36.0 [facility] Erythrocyte distribution width [Ratio] by Automated count 12.0 % 11.5 - 14.8 [facility] Platelets [#/volume] in Blood by Automated count 304 10^3/uL 150 - 45 0 [facility] Platelet mean volume [Entitic volume] in Blood by Automated count 9.7 fL 7.4 - 10.4 [facility] Neutrophils/100 leukocytes in Blood by Automated count 53.0 % 37. 0 - 80.0 [facility] Lymphocytes/100 leukocytes in Blood by Manual count 32.3 % 25.0 - 40.0 [facility] Monocytes/100 leukocytes in Blood by Automated count 12.4 % 3.0 - 8.0 H [facility] Eosinophils/100 leukocytes in Blood by Automated count 1.0 % 0.0 - 7.0 [facility] Basophils/100 leukocytes in Blood by Automated count 1.0 % 0.0 - 2.0 [facility] [facility] %IG 0.3 % 0.0 - 0.0 [facility] %NRBC 0.0 % 0.0 - 0.0 [facility] al Neutrophils [#/volume] in Blood by Automated count 3.69 10^3/uL 2.00 - 6.90 [facility] Lymphocytes [#/volume] in Blood by Automated count 2.25 10^3/uL 0.60 - 3.40 [facility] Monocytes [#/volume] in Blood by Automated count 0.86 10^3/uL 0.00 - 0.90 [facility] Eosinophils [#/volume] in Blood by Automated count 0.07 10^3/uL 0.00 - 0.70 [facility] Basophils [#/volume] in Blood by Automated count 0.07 10^3/uL 0.00 - 0.20 [facility] #IG 0.02 10^3/uL 0.00 - 0.10 [facility] ospital #NRBC 0.00 10^3/uL 0.00 - 0.00 [facility] ospital MANUAL DIFF NOT INDICATED [facility] RBC MORPH NOT INDICATED [facility] Ho spital ID Date Data Source [id number] 04/10/2019 08:27:00 PM [facility] Name Value Range Interpretation Code Description Data Ruth rce(s) Supporting Document(s) URINALYSIS [facility] Hospi shimon URINALYSIS SOURCE R [facility] Hospit al COLOR yellow NORMAL: Yellow [facility] ospital CLARITY clear NORMAL: Clear [facility] Ho spital Specific gravity of Urine by Test strip 1.030 1.001 - 1.030 [facility] pH 6 5 - 9 [facility] al Glucose [Mass/volume] in Urine by Test strip NORM NORMAL: Negat [facility] Bilirubin.total [Presence] in Urine by Test strip NEG NORMAL: Negative [facility] Ketones [Presence] in Urine by Test strip 50 NORMAL: Negative A [facility] Protein [Mass/volume] in Urine by Test strip NEG NORMAL: Negat [facility] Nitrite [Presence] in Urine by Test strip NEG NORMAL: Negative [facility] BLOOD NEG NORMAL: Negative [facility] Leukocyte esterase [Presence] in Urine by Test strip NEG HONG L: Negative [facility] Urobilinogen [Mass/volume] in Urine by Test strip NOR less sheldon n 1.0 mg/dL [facility] MICROSCOPIC Not Indicate [facility] ospital ID Date Data Source [id number] 04/05/2019 02:47:00 PM [facility] [address] [place] [address] RESPIRATORY CARE REPORT ==== ---------NAME------- NUMBER SEX AGE ADMIT DISC. XRAY# F/C TYPELEVESTA Wilkes [id number] M 58 04/04/19 04/04/19 [id number] SB4 E/R DATE OF : 1960 M/R# [id number] #: [id number] TR-03 LOCATION: EMERGENCY DEPT EKG [id number] COMP LETE:04/05/19 08:12 ANDREA [id number] PHYSICIAN: FADUMO LUCRECIA Name Value Range Interpretation Code Description Data Ruth rce(s) Supporting Document(s) ID Date Data Source [id number] 04/04/2019 09:54:00 AM EST [facility] 1 OrderSheet [facility] Emergency Department [address] [place] [address] Phone #: ext- [phone] 04/04/2019 09:50 Patient: ISABELLA WHITMORE Sex: M : 1960 Age: 58yWEIGHT:83.0 kg HEIGHT:69 inches BMI:27.0ALLERGIES: No Known Drug AllergyCHIEF COMPLAINT: abdominal painDIAGNOSIS: Abdominal painLAB ORDERSOrder Description Priority Entered Acknowledged InitialedCBC w Diff STAT 10:11 04/04/2019 10:15 Errol Nelson; Oziel CampCMP STAT 10:04/04/2019 10:15 Errol Nelson; Oziel CampLactic Acid STAT 10:04/04/2019 10:15 Errol Nelson; Oziel CampLipase STAT 10:11 04/04/2019 10:15 Errol Nelson; Oziel CampUrinalysis (Clean STAT 10:04/04/2019 10:15 Noel Nelson) Errol CALHOUN; Oziel CampTroponin-T STAT 10:11 04/04/2019 10:15 Errol Nelson; Oziel CampDIAGNOSTIC STUDY ORDERSOrder Description Priority Entered Acknowledged InitialedMEDICATION/IV/DRIP/FLUID ORDERSOrder Description Priority Entered Acknowledged InitialedNS IV : Bolus 500 10:11 04/04/2019 10:24 Omar,mL, then 100 mL/hr Errol CALHOUN; Oziel Camp(NOW x1)Zofran IVP 4 mg 10:11 04/04/2019 10:23 Errol Nelson; Oziel CampProtonix IVPB 40 10:11 04/04/2019 10:23 Omar,mg with Dextrose Errol CALHOUN; Oziel Camp100 ml spike bag(D5W)GENERAL ORDERSOrder Description Priority Entered Acknowledged InitialedNPO 10:11 04/04/2019 10:15 Omar, 2 OrderSheet [facility] Emergency Department [address] [place] [address] Phone #: ext- [phone] 04/04/2019 09:50 Patient: ISABELLA WHITMORE Sex: M : 1960 Age: 58y Errol CALHOUN; Oziel CampWarm blanket 10:11 04/04/2019 10:15 Errol Nelson; Oziel CampEKG 10:04/04/2019 10:22 Errol Nelson; Oziel Camp[Electronically signed by Selin Soto RN (11:04/04/2019)][Electronically signed by Errol Thorne (13:42 04/04/2019)][Electronically locked by Selin Soto RN (:04/04/2019)] Name Value Range Interpretation Code Description Data Ruth rce(s) Supporting Document(s) ID Date Data Source [id number] 04/04/2019 09:54:00 AM EST [facility] 1 Medication Reconciliation Report [facility] Emergency Department [address] [place] [address] Phone #: ext- [phone] 04/04/2019 09:50 Patient: ISABELLA WHITMORE Sex: M : 1960 Age: 58yWeight: 83.0 kgHeight/Length: 69 in.BMI: 27.0ALLERGIES: No Known Drug AllergyThe patient's Home Medications are listed below:CONTINUE TAKING THE FOLLOWING MEDICATIONS: Lisinopril Oral 20 mg, dailyThe source(s) of the original Home Medication information:Not obtained.The following Medications were given to the patient in the Emergency Department:Zofran [IVP] IVP 4 mg, administered: 04/04/2019 10:23:00 AMProtonix [IVPB] IVPB bolus 0, then 40 mg 200 mL/hr, administered: 04/04/2019 10:23:00 AMNS [IV] IV Fluids bolus 0, then 500 mL/hr, administered: 04/04/2019 10:23:00 AMThe following Medications were prescribed to the patient:Zofran 4 mg tablet Take 1 tablet every eight hours as needed for 3 days -- for nausea. Dispense 9 tablet.Refills: 0. Substitution permitted.Pharmacy - [id number] [place], [place] [phone]. . -- UNIQUE Rehman Name Value Range Interpretation Code Description Data Ruth rce(s) Supporting Document(s) ID Date Data Source [id number] 04/04/2019 09:54:00 AM EST [facility] 1 Medication Administration Record [facility] Emergency Department [address] [place] [address] Phone #: ext- [phone] 04/04/2019 09:50 Patient: ISABELLA WHITMORE Sex: M : 1960 Age: 58yWeight: 83.0 kgHeight/Length: 69 inBMI: 27ALLERGIES: No Known Drug Allergy Date/Time Medication Administered Medication OrderedStart NS [IV] NS IV : Bolus 500 mL, then 46565:23 04/04/2019 Dose: IV Fluids mL/hr (NOW x1)Oziel Nelson R.N. Rate: 500 mL/hr over 1 hour(s)---- Dispensed: 500 mL bagStop Site: #1 left AC11:15 04/04/2019Selin Soto RNGiven ZOFRAN [IVP] (ONDANSETRON HCL) Zofran IVP 4 mg10:23 04/04/2019 Dose: 4 mg IVPPOziel gaston R.N. Site: #1 left ACStart PROTONIX [IVPB] (PANTOPRAZOLE Protonix IVPB 40 mg with10:23 04/04/2019 SODIUM) Dextrose 100 ml spike bag (D5W)Oziel Nelson R.N. Dose: 40 mg IVPB---- Rate: 200 mL/hr over 15 minute(s)Stop Dispensed: 50 mL bag10:43 04/04/2019 Site: # 1 left Nilay Soto RN Name Value Range Interpretation Code Description Data Ruth rce(s) Supporting Document(s) ID Date Data Source [id number] 04/04/2019 09:54:00 AM EST [facility] 1 General Instructions [facility] Emergency Department [address] [place] [address] Phone #: ext- [phone] 04/04/2019 09:50 Patient: ISABELLA WHITMORE Sex: M : 1960 Age: 58yAcute right upper quadrant abdominal pain of unknown cause.INSTRUCTIONSNo strenuous activity until better.Drink plenty of fluids for the next 48 hours. Avoid alcohol and NSAIDS. NSAIDS include aspirin, ibuprofen(Advil) and naproxen (Aleve). Avoid fatty, fried/greasy, lactose- containing (such as milk, cheese and icecream), salty and spicy foods until better. No alcohol. Do not smoke.Warnings: Further evaluation is necessary in order to conduct further tests. It is very important to follow upwith a healthcare provider.GENERAL WARNINGS: Return or contact your physician immediately if your condition worsens orchanges unexpectedly, if not improving as expected, or if other problems arise. SPECIFICALLY, return ifyou develop pain in the testicle, back or shoulder, fever, vomiting, the inability to keep fluids down, blood invomitus, blood in diarrhea, fainting or lightheadedness; or for continued pain in the abdomen; or if there isno improvement in the pain in the abdomen.Your Current Medications: Your current home medications have been reviewed.CONTINUE TAKING THE FOLLOWING MEDICATIONS:Lisinopril Oral : 20 mg daily.Prescription Medications:Zofran 4 mg tablet Take 1 tablet every eight hours as needed for 3 days -- for nausea. Dispense 9 tablet.Refills: 0. Substitution permitted.Pharmacy - [id number] - [address] [facility] ; [place], [place] [phone]. .Follow-up:Follow up with your healthcare provider in three days even if well. Call for the next available appointment.Reason for referral: evaluation and recommend out pt US GB and abd CT, recommend GE referral.Summary of care provided to patient and family via paper.Understanding of the discharge instructions verbalized by patient and family. Expected course of illness,discharge instructions, activity level, prescriptions x1, follow-up appointment and risks and benefits oftreatment reviewed with patient and understanding verbalized. Agrees to plan of care. ADDITIONAL INFORMATION 2 General Instructions [facility] Emergency Department [address] [place], [place] [id number] Phone #: ext- [phone] 04/04/2019 09:50 Patient: HAIM, ISABELLA A Sex: M : 1960 Age: 58yUnknown Causes of Abdominal Pain (Male)Based on your visit today, the exact cause of your abdominal pain is not clear. Your exam and testsdon't suggest a dangerous cause at this time. However, the signs of a serious problem may takemore time to appear. Although your evaluation was reassuring today, sometimes early in the courseof many conditions, exam and lab tests can appear normal. Therefore, it is important for you to watchfor any new symptoms or worsening of your condition.It may not be obvious what caused your symptoms. Pay attention to things that do seem to makeyour symptoms worse or better and discuss this with your doctor when you follow up.The evaluation of abdominal pain in the emergency department may only require an exam by thedoctor or it may include blood, urine or imaging studies, depending on many factors. Sometimesexams and tests can identify a cause but in many cases, a clear cause is not found. Further testing atfollow up visits may help to suggest a clear diagnosis.Home care Rest as much as you can until your next exam. Try to avoid any medicines (unless otherwise directed by your doctor), foods, activiti es, or other factors that may have contributed to your symptoms. Try to eat foods that you know that you have tolerated well in the past. Certain diets may be recommended for some conditions that cause abdominal pain. However, since the cause of your symptoms may not be clear, discuss your diet more with your healthcare provider or specialist for further recommendations. If you have diarrhea, it may help to avoid dairy (lactose) for the time being. A low fat, low fiber diet can also help. Eating several small meals per day as opposed to 2 or 3 larger meals may help. Avoid dehydration. Make sure to drink plenty of water. Other options include broth, soup, gelatin, sports drinks, or other clear liquids. Watch closely for anything that may make your symptoms worse or better. Pay close attention to symptoms below that may mean your condition is getting worse.Follow-up careFollow up with your healthcare provider if your symptoms are not improving, or as advised. In s omecases, you may need more testing.When to seek medical advice 3 General Instructions [facility] Emergency Department [address] [place] [address] Phone #: ext- [phone] 04/04/2019 09:50 Patient: ISABELLA WHITMORE Sex: M : 1960 Age: 58yCall your healthcare provider right away if any of these occur: Pain is becoming worse You are unable to take your medicines or can't keep water down due to excessive vomiting Swelling of the abdomen Fever of 100.4F (38C) or higher, or as directed by your healthcare provider Blood in vomit or bowel movements (dark red or black color) Jaundice (yellow color of eyes and skin) New onset of weakness, dizziness or fainting New onset of chest, arm, back, neck or jaw pain [id number] [employer]. [address] [place] [address]. All rights reserved. This information is not intended as asubstitute for professional medical care. Always follow your healthcare professional's instructions.[place] DietYour healthcare provider may recommend a bland diet if you have an upset stomach. It consists offoods that are mild and easy to digest. It is better to eat small frequent meals rather than 3 largemeals a day.BeveragesOK: Fruit juices, non-caffeinated teas and coffee, non-carbonated elder 4 General Instructions [facility] Emergency Department [address] [place] [address] Phone #: ext- [phone] 04/04/2019 09:50 Patient: ISABELLA WHITMORE Sex: M : 1960 Age: 58yAvoid: Carbonated beverage, caffeinated tea and coffee, all alcoholic beveragesBreadOK: Refined white, wheat or rye bread, petra or soda cr ackers, Opal toast, plain rolls, bagelsAvoid: Whole-grain breadCerealOK: Refined cereals: cooked or ready to eatAvoid: Whole-grain cereals and granola, or those containing bran, seeds or nutsDessertsOK: Peanut butter and all others except those to "avoid"Avoid: Chocolate, cocoa, coconut, popcorn, nuts, seeds, jam, marmaladeFruitsOK: Canned, cooked, frozen or fresh fruits without seeds or tough skinAvoid: Olives, skin and seeds of fruit, dried fruitMeatsOK: All fresh or preserved meat, fish and fowlAvoid: Any that are prepared with those spices to "avoid"Cheese and eggsOK: Eggs, cottage cheese, cream cheese, other cheesesAvoid: All cheeses made with those spices to "avoid"Potatoes and pastaOK: Potato, rice, macaroni, noodles, spaghettiAvoid: NoneSoupsOK: All soups without heavy seasoning 5 General Instructions [facility] Emergency Department [address] [place] [address] Phone #: ext- [phone] 04/04/2019 09:50 Patient: ISABELLA WHITMORE Sex: M : 1960 Age: 58yAvoid: Soups made with those spices to "avoid"VegetablesOK: Canned, cooked, fresh or frozen mildly flavored vegetables without seeds, skins or coarse fiberAvoid: Vegetables prepared with those spices to "avoid"; skin and seeds of vegetables and those withcoarse fiber, broccoli, cabbage, cauliflower, cucumber, green peppers, and cornSpicesOK: Salt, lemon and limejuice, vinegar, all extracts, jimmy, cinnamon, thyme, mace, allspice, paprikaAvoid: Dillon powder, cloves, pepper, seed spices, garlic, gravy pickles, highly seasoned saladdressings [employer]. [address] [place] [address]. All rights reserved. This information is not intended as asubstitute for professional medical care. Always follow your healthcare professional's instructions.Clear Liquid DietClear liquids are any liquid that you can see through. They are also very easy to digest. You may beput on a clear liquid diet if you are recovering from irritation or infection of the stomach or intestinaltract. This diet may also be used before surgery or special procedures such as a colonoscopy. Youshould not be on this diet for more than 3 days. Below are some clear liquids you can have on thisdiet.Adults and children over 2 years oldAdults should drink a total of 2 to 3 quarts of liquid per day. It may be easier to drink small frequentservings rather than a few large ones. Liquids can include: Fruit juices. Strained orange juice or lemonade (no pulp); apple, grape, and cranberry juice; clear fruit drinks 6 General Instructions [facility] Emergency Department [address] [place] [address] Phone #: ext- [phone] 04/04/2019 09:50 Patient: ISABELLA WHITMORE Sex: M : 1960 Age: 58y Beverages. Sport drinks, sodas, mineral water (plain or flavored), tea, black coffee, liquid gelatin (add twice the recommended amount of water) Soups. Clear broth Desserts. Plain gelatin, popsicles, fruit juice barsChildren under 2 years oldOral rehydration fluids are available at drug stores and most grocery stores. You don't need aprescription. [employer]. [address] [place] [address]. All rights reserved. This information is not intended as asubstitute for professional medical care. Always follow your healthcare professional's instructions. You have been given the following additional information: Unknown Causes of Abdominal Pain (Male) Diet, [place] (Adult) Clear Liquid Diet No strenuous acti vity until better.(Electronically signed by UNIQUE Rehman 04/04/2019 13:42) Name Value Range Interpretation Code Description Data Ruth rce(s) Supporting Document(s) ID Date Data Source [id number] 04/04/2019 09:54:00 AM EST [facility] 1 Clinical Report - Nurses [facility] Emergency Department [address] [place] [address] Phone #: ext- [phone] 04/04/2019 09:50 Patient: ISABELLA WHITMORE Sex: M : 1960 Age: 58yTRIAGEArrived by private vehicle. Historian: patient. ( Pt presents worried about his kidneys, abdominal pain x 3months, and cant sleep, cant poop x 3 days, hasnt been to doctor because of copays).Acuity: LEVEL 3.Chief Complaint: CONSTIPATION.Onset. (3 months ago). --09:55 04/04/19 Oziel Nelson R.N.09:54 04/04/19. BP: 128/78. HR: 102. RR: 18. O2 saturation: 99%. Temp: 97.2 F. Pain level now 6/10.--09:55 04/04/19 Oziel Nelson R.N.SEPSIS SCREEN: Negative (no infection suspected/documented). --09:55 04/04/19 Oziel Nelson R.N.Weight: 83 kg. Height/Length: 69 inches. BMI: 27. --09:53 04/04/19 Oziel Nelson R.N.MedicationsLisinopril Oral 20 mg, daily. --09:55 04/04/19 Oziel Avila R.N.AllergiesNo Known Drug Allergy. --09:55 04/04/19 Oziel Nelson R.N.PROBLEMS:Hypertension. --11:23 04/04/19 Selin Soto RN.ADDITIONAL SURGERIES:Back Surgery. --11:24 04/04/19 Selin Soto RN.HistorySOCIAL HX: Current every day smoker. Alcohol use; consumes beer occasionally. No drug use. Hewas offered HIV testing but declined and hepatitis C testing but declined. He has not traveled outside the[place]Infectious disease exposure: No infectious disease exposure.SELF HARM ASSESSMENT: Self harm assessment was performed. The patient answered "no" to thequestion(s) "Have you recently felt down, depressed, or hopeless?", "Do you have thoughts of harming orkilling yourself?", "Do you have a plan for harming or killing yourself?", "Have you recently had thoughtsabout harming or killing others?", "Do you have any dangerous items in your possession?", "Have younoticed less interest or pleasure in doing things?", "Are you here because you tried to hurt yourself?" and"Have you ever tried to hurt yourself before today?". 2 Clinical Report - Nurses [facility] Emergency Department [address] [place] [address] Phone #: ext- [phone] 04/04/2019 09:50 Patient: ISABELLA WHITMORE Sex: M : 1960 Age: 58y ABUSE ASSESSMENT: Abuse assessment. Abuse denied. NUTRITIONAL RISK ASSESSMENT: The nutritional risk assessment revealed no deficiencies. FUNCTIONAL ASSESSMENT: Functional assessment: no impairments noted. LEARNING NEEDS ASSESSMENT: The learning needs assessment revealed no barriers. FALL RISK ASSESSMENT: Fall risk assessment completed. No risk factors identified. SKIN INTEGRITY ASSESSMENT: Skin integrity risk assessment completed. No skin integrity risk identified. --09:55 04/04/19 Oziel Nelson R.N. Interventions Identification band on patient. To treatment room. --09:55 04/04/19 Oziel Nelson R.N.PHYSICAL ASSESSMENTGENERAL / NEURO / PSYCH: Alert. Oriented X 4. Appears in no acute distress.HEENT: Pupils equal, round and reactive to light. No facial asymmetry noted.RESPIRATORY: Respirations not labored. Breath sounds within normal limits.CVS: Capillary refill less than 2 seconds. Pulses within normal limits.GI / : Abdomen soft and nontender and normal bowel sounds.SKIN: Skin is warm and dry. --09:59 04/04/19 Oziel Nelson R.N.NURSING PROGRESS NOTESPatient gowned. Call light placed in reach. Side rails up. Bed placed in lowest position. Brakes of bedon. ( Pt admits to stopping drinking about 6 weeks ago). --09:58 04/04/19 Oziel Nelson R.N. ( Pt states "im worried that my kidneys arent working but states that he can pee fine"). --10:01 04/04/19 Oziel Nelson R.N. 10:04/04/2019 Site #1 started via IV in the left antecubital space with an 20g angiocath; one attempt. Blood drawn: rainbow set. Saline lock flushed. --10:23 04/04/19 Oziel Nelson R.N. 10:04/04/2019 Zofran (Ondansetron HCl) IVP 4 mg given over 1 minute(s) via site #1. Allergies verified and confirmed 5 rights. IV patency established. IV site checked: no pain, redness, or swelling. IV flushed thoroughly pre- and post-medication administration. IVP given by RN. Information reviewed with patient. --10:23 04/04/19 Oziel Nelson R.N. 10:04/04/2019 Started 40 mg of Protonix (Pantoprazole Sodium) IVPB in bag #1 50 mL; at 200 mL/hr over 15 minute(s) via site #1. via IV pump. Allergies verified and confirmed 5 rights. IV patency esta blished. IV site checked: no pain, redness, or swelling. IV flushed thoroughly pre- and post-medication administration. Information reviewed with patient. --10:23 04/04/19 Oziel Nelson R.N. 3 Clinical Report - Nurses [facility] Emergency Department [address] [place] [address] Phone #: ext- [phone] 04/04/2019 09:50 Patient: ISABELLA WHITMORE Sex: M : 1960 Age: 58y 10:23 04/04/2019 Started bag #1 500 mL IV Fluids NS; at 500 mL/hr over 1 hour(s) via site #1 via IV pump. Allergies verified and confirmed 5 rights. IV patency established. IV site checked: no pain, redness, or swelling. IV flushed thoroughly pre- and post-medication administration. Information reviewed with patient. --10:24 04/04/19 Oziel Nelson R.N. ( Pt declining blanket). --10:25 04/04/19 Oziel Nelson R.N. ( Pt states "still nauseous"). --11:08 04/04/19 Oziel Nelson R.N. ( provider at bedside). --11:08 04/04/19 Oziel Nelson R.N. ( Pt declining further testing). --11:20 04/04/19 Oziel Nelson R.N. 10:43 04/04/2019 Protonix IVPB via IV site #1 Discontinued: completed. Total amount infused: 100 mL. IV patency established. IV site checked: no pain, redness, or swelling. IV flushed thoroughly. --11:25 04/04/19 Selin Soto RN 11:15 04/04/2019 IV Fluids NS via IV site #1 Discontinued: bag #1 STOPPED. Total amount infused: 250 mL. IV patency established. IV site checked: no pain, redness, or swelling. IV flushed thoroughly. --11:24 04/04/19 Selin Soto RN 11:17 04/04/2019 Site #1 removed upon discharge. Catheter intact. Manual pressure and bandage applied. --11:21 04/04/19 Selin Soto RN.DISPOSITION / DISCHARGE 11:20 04/04/19. Condition at departure: stable. No learning barriers present. Discharge instructions provided and reviewed with the patient. Reviewed medication(s) side effects, precautions, dosing and course information. Prescription(s) sent electronically to pharmacy ([facility]). Patient verbalized understanding. Written instructions provided in Greenlandic. The patient was discharged home and accompanied by spouse. He left ambulatory and via private vehicle. Spouse driving. --11:23 04/04/19 Selin Soto RN 11:18 04/04/19. BP: 156/92. MAP: 113. HR: 61. RR: 16. O2 saturation: 100%. Temp: 98.5 F. Pain level now: 0/10. --11:23 04/04/19 Selin Soto RN.Locked/Released at 04/04/2019 11:25 by Selin Soto RN Name Value Range Interpretation Code Description Data Ruth rce(s) Supporting Document(s) ID Date Data Source [id number] 04/04/2019 09:54:00 AM [facility] [facility] 1 Clinical Report - Physicians/Mid Levels [facility] Emergency Department [address] [place] [address] Phone #: ext- [phone] 04/04/2019 09:50 Patient: ISABELLA WHITMORE Sex: M : 1960 Age: 58y Time Seen: 10:00 04/04/2019. Arrived- By private vehicle. Historian- patient. Disposition decision: 11:11 04/04/2019.HISTORY OF PRESENT ILLNESS Chief Complaint: ABDOMINAL PAIN. This started about 3 months ago; Increasing RUQ and lower abdominal pain x 3 mos, no BM x 2-3 days, trouble sleeping due to abdominal pain, concerned about kidney function however states no flank pain, see nephrology in [place] and states he has normal kidney function, has appt there tomorrow. Denies fever, nausea, vomiting. It is described as sharp, stabbing and cramping and it is described as located in the right upper quadrant, right lower quadrant and left lower quadrant and in the lower abdomen. At its maximum, severity described as 6 / 10. When seen in the E.D., severity described as moderate and 6 / 10. No nausea, loss of appetite, vomiting or diarrhea. No recent travel. Similar symptoms previously. Patient has had similar symptoms several times. Recent medical care: Not recently seen/assessed.REVIEW OF SYSTEMSNo constipation, black stools, hematemesis, difficulty with urination or pain with urination. No urinaryfrequency, bloody stools, fever, headache or sore throat. No blurred vision, chest pain, difficulty breathing,joint pain or skin rash. No chills or back pain. Last bowel movement- this am small amount per pt. Thepatient has not had weight loss.PAST HISTORYSee nurses notes. Problems: Back Pain. Hypertension. Influenza. Additional Surgeries: Back Surgery. Medications: Lisinopril Oral 20 mg, daily. Allergies: No Known Drug Allergy.SOCIAL HISTORY 2 Clinical Report - Physicians/Mid [facility] Emergency Department [address] [place] [address] Phone #: ext- [phone] 04/04/2019 09:50 Patient: ISABELLA WHITMORE Sex: M : 1960 Age: 58y Heavy tobacco smoker. Occasional alcohol use. No drug use. No recent travel.ADDITIONAL NOTESThe nursing notes have been reviewed with agreement regarding the chief complaint, HPI, ROS, PMH andpatient medications and allergies.PHYSICAL EXAMVital Signs: 04/04/2019 09:54 BP: 128/78. MAP: 94. HR: 102. RR: 18. O2 saturation: 99%. Temp: 97.2 F.Have been reviewed as abnormal and appear to be correct. Blood pressure normal. Mean arterialpressure- normal. Tachycardic. Respiratory rate normal. Temperature normal. Oxygen saturationnormal.Appearance: Alert. Oriented X3. No acute distress.Eyes: Pupils equal, round and reactive to light. Eyes normal inspection.ENT: Ears normal. Nose normal. Pharynx normal.Neck: Normal inspection. Neck supple.CVS: Normal heart rate and rhythm. Heart sounds normal. Pulses normal.Respiratory: No respiratory distress. Painless inspiration. Breath sounds normal. Chest nontender.Abdomen: Soft. Moderate tenderness in the right upper quadrant, right lower quadrant, left lowerquadrant and lower abdomen. Bowel sounds normal. No organomegaly. No mass. Femoral pulsesequal.Back: Normal inspection.Skin: Skin warm and dry. Normal skin color. No rash. Normal skin turgor.Extremities: Extremities exhibit normal ROM. No lower extremity edema.Neuro: Oriented X 3. No motor deficit. No sensory deficit. Reflexes normal.LABS, X-RAYS, AND EKGEKG: EKG time: 10:40 04/04/2019. No acute process. No acute ischemia. Rate: 73. Normal P waves.Normal VITOR. Normal QRS complex. Normal axis. Normal ST and T waves, QT and QTc. sinus rhythmwith marked sinus arrhythmia. Changes present when compared to prior EKG. (NSR 24 MAY 2011 nosinus arrhythmia). The study has been interpreted contemporaneously by me. The study has beenindependently viewed by me. The EKG appears to be a good tracing. I agree with and confirm thecomputer reading of the EKG. Interpretation time: 10:40 04/04/2019.Laboratory Tests: Laboratory tests have been ordered, with results reviewed and considered in themedical decision making process. CBC w Diff: (KYLE: 04/04/2019 10:12) ( MsgRcvd 04/04/2019 10:24) Final results Test Result Flag Units (Reference) CBC W/AUTOMATED DIFF COMPLETE BLOOD COUNT WBC 6.0 10/uL (4.2 - 11.0) RBC 4.70 10/uL (4.50 - 6.30) HEMOGLOBIN 14.7 g/dL (14.0 - 16.0) HEMATOCRIT 42.1 % (41.0 - 51.0) MCV 89.6 fL (80.0 - 94.0) MCH 31.3 pg (27.0 - 34.0) MCHC 34.9 g/dL (31.0 - 36.0) RDW 11.9 % (11.5 - 14.8) PLATELETS 330 10/uL (150 - 450) MPV 9.3 fL (7.4 - 10.4) 3 Clinical Report - Physicians/Mid Levels [facility] Emergency Department [address] [place] [address] Phone #: ext- [phone] 04/04/2019 09:50 Patient: ISABELLA WHITMORE Sex: M : 1960 Age: 58y NEUT 58.1 % (37.0 - 80.0) LYMPH 30.2 % (25.0 - 40.0) MONO 9.2 H % (3.0 - 8.0) EOS 1.3 % (0.0 - 7.0) BASO 1.0 % (0.0 - 2.0) %IG 0.2 H % (0.0 - 0.0) %NRBC 0.0 % (0.0 - 0.0) #NEUT 3.46 10/uL (2.00 - 6.90) #LYMPH 1.80 10/uL (0.60 - 3.40) #MONO 0.55 10/uL (0.00 - 0.90) #EOS 0.08 10/uL (0.00 - 0.70) #BASO 0.06 10/uL (0.00 - 0.20) #IG 0.01 10/uL (0.00 - 0.10) #NRBC 0.00 10/uL (0.00 - 0.00) MANUAL DIFF NOT INDICATED RBC MORPH NOT INDICATEDCMP: (KYLE: 04/04/2019 10:12) ( MsgRcvd 04/04/2019 11:03) Final results Test Result Flag Units (Reference) COMPREHENSIVE METABOLIC PANEL COMPREHENSIVE METABOLIC PANEL SODIUM 133 L mEq/L (134 - 153) POTASSIUM 4.5 mEq/L (3.6 - 5.0) CHLORIDE 97 L mEq/L (98 - 107) CO2 27 MEQ/L (22 - 30) GLUCOSE 135 H MG/DL (65 - 110) BUN 13 MG/DL (7 - 21) CREATININE 0.9 MG/DL (0.7 - 1.5) BUN/CREAT 14 (8 - 27) TOTAL PROTEIN 7.2 G/DL (6.3 - 8.2) ALBUMIN 4.0 G/DL (3.9 - 5.0) GLOBULIN 3.2 GM/DL (2.4 - 3.2) A/G RATIO 1.3 (0.8 - 2.0) CALCIUM 10.0 MG/DL (8.4 - 10.2) TOTAL BILI <0.7 MG/DL (0.2 - 1.3) ALKALINE PHOS 91 U/L (38 - 126) SGOT/AST 21 U/L (5 - 40) SGPT/ALT 29 U/L (7 - 56) ANION GAP 9.0 mmol/L (8.0 - 16.0) AGE 58 yrs NON-AA GFR >60 mL/min AFR AMER GFR >60 mL/min Male GFR Interprentation 20-49 yrs >60 mL/min [id number] yrs >56 mL/min Normal 60-69 yrs >49 mL/min Normal 70-79yrs>42 mL/min Normal 80 and above >35 mL/min Normal Female GFRInterpretation 20-39 yrs >60 mL/min Normal 40-49 yrs >58 mL/minNormal 50-59 yrs >51 mL/min Normal 60-69 yrs >45 mL/min [id number] yrs >39 mL/min Normal 80 and above >32 mL/min NormalLactic Acid: (KYLE: 04/04/2019 10:12) ( MsgRcvd 04/04/2019 10:30) Final results Test Result Flag Units (Reference) LACTIC ACID 1.9 MMOL/L (0.2 - 2.2)Lipase: (KYLE: 04/04/2019 10:12) ( [facility] 04/04/2019 10:41) Final results Test Result Flag Units (Reference) LIPASE 24 U/L (13 - 60)Urinalysis: (KYLE: 04/04/2019 09:51) ( [facility] 04/04/2019 10:30) Final results Test Result Flag Units (Reference) URINALYSIS URINALYSIS SOURCE R COLOR yellow (NORMAL: Yello 4 Clinical Report - Physicians/Mid Levels [facility] Emergency Department [address] [place] [address] Phone #: ext- [phone] 04/04/2019 09:50 Patient: ISABELLA WHITMORE Sex: M : 1960 Age: 58y CLARITY clear (NORMAL: Clear SPEC GRAVITY 1.020 (1.001 - 1.030 pH 6.5 (5 - 9) GLUCOSE NORM (NORMAL: Negat BILIRUBIN NEG (NORMAL: Negat KETONE 5 A (NORMAL: Negat PROTEIN 30 (NORMAL: Negat NITRITE NEG (NORMAL: Negat BLOOD NEG (NORMAL: Negat LEUK EST NEG (NORMAL: Negat UROBILINOGEN 1 (less than 1.0 MICROSCOPIC See Below EPITHELIAL FEW (NORMAL: NONE BACTERIA Trace (NORMAL: NONE MUCOUS 1+ (NORMAL: NONE Troponin-T: (KYLE: 04/04/2019 10:12) ( [facility] 04/04/2019 10:39) Final results Test Result Flag Units (Reference) TROPONIN T 0.01 NG/ML (0.00 - 0.10) TROPONIN T0.1 ng/ml Recommended as the clinical threshold value forTroponin T..PROGRESS AND PROCEDURESCourse of Care: 11:14 Apr 04 2019. Pt with benign labs, however still with nausea, RUQ abd pain after IVfluids and zofran, refuses abd CT/additional testing in ED, resting comfortably in exam bed in NAD, glad hisrenal function is WNL, will discharge to home, advised return precautions, recommend 3 days f/u withPCM, US GB and abd CT as out pt and GE referral. Disposition: Discharged home in good and improved condition. Discharge decision based on the following: patient's condition is improved; patient is ambulatory; patient is active; patient's exam is improved; minimally abnormal test results; improving condition on repeat evaluation; social support is adequate; transportation is available; follow-up is available; clinical impression is consistent with outpatient treatment.CLINICAL IMPRESSION Acute right upper quadrant abdominal pain of unknown cause.INSTRUCTIONS No strenuous activity until better. Drink plenty of fluids for the next 48 hours. Avoid alcohol and NSAIDS. NSAIDS include aspirin, ibuprofen (Advil) and naproxen (Aleve). Avoid fatty, fried/greasy, lactose- containing (such as milk, cheese and ice cream), salty and spicy foods until better. No alcohol. Do not smoke. Warnings: Further evaluation is necessary in order to conduct further tests. It is very important to follow up with a healthcare provider. GENERAL WARNINGS: Return or contact your physician immediately if your condition worsens or 5 Clinical Report - Physicians/Mid Levels [facility] Emergency Department [address] [place] [address] Phone #: ext- [phone] 04/04/2019 09:50 Patient: ISABELLA WHITMORE Sex: M : 1960 Age: 58y changes unexpectedly, if not improving as expected, or if other problems arise. SPECIFICALLY, return if you develop pain in the testicle, back or shoulder, fever, vomiting, the inability to keep fluids down, blood in vomitus, blood in diarrhea, fainting or lightheadedness; or for continued pain in the abdomen; or if there is no improvement in the pain in the abdomen. Your Current Medications: Your current home medications have been reviewed. CONTINUE TAKING THE FOLLOWING MEDICATIONS: Lisinopril Oral : 20 mg daily. Prescription Medications: Zofran 4 mg tablet Take 1 tablet every eight hours as needed for 3 days -- for nausea. Dispense 9 tablet. Refills: 0. Substitution permitted. Pharmacy - [id number] [id number] ; [place], [place] [id number]. . Follow-up: Follow up with your healthcare provider in three days even if well. Call for the next available appointment. Reason for referral: evaluation and recommend out pt US GB and abd CT, recommend GE referral. Summary of care provided to patient and family via paper. Understanding of the discharge instructions verbalized by patient and family. Expected course of illness, discharge instructions, activity level, prescriptions x1, follow-up appointment and risks and benefits of treatment reviewed with patient and understanding verbalized. Agrees to plan of ca re.(Electronically signed by UNIQUE Rehman 04/04/2019 13:42) Name Value Range Interpretation Code Description Data Ruth rce(s) Supporting Document(s) ID Date Data Source [id number] 04/04/2019 11:03:00 AM EST [facility] Name Value Range Interpretation Code Description Data Ruth rce(s) Supporting Document(s) COMPREHENSIVE METABOLIC PANEL [facility] COMPREHENSIVE METABOLIC PANEL Sodium [Moles/volume] in Serum or Plasma 133 mEq/L 134 - 153 L [facility] Potassium [Moles/volume] in Serum or Plasma 4.5 mEq/L 3.6 - 5.0 [facility] Chloride [Moles/volume] in Serum or Plasma 97 mEq/L 98 - 107 L [facility] Carbon dioxide, total [Moles/volume] in Serum or Plasma 27 MEQ/L 22 - 30 [facility] Glucose [Mass/volume] in Serum or Plasma 135 MG/DL 65 - 110 H [facility] BUN 13 MG/DL 7 - 21 [facility] Creatinine [Mass/volume] in Serum or Plasma 0.9 MG/DL 0.7 - 1.5 [facility] BUN/CREAT 14 8 - 27 [facility] al Protein [Mass/volume] in Serum or Plasma 7.2 G/DL 6.3 - 8.2 [facility] Albumin [Mass/volume] in Serum or Plasma 4.0 G/DL 3.9 - 5.0 [facility] Globulin [Mass/volume] in Serum by calculation 3.2 GM/DL 2.4 - 3.2 [facility] A/G RATIO 1.3 0.8 - 2.0 [facility] Calcium [Mass/volume] in Serum or Plasma 10.0 MG/DL 8.4 - 10.2 [facility] Bilirubin.total [Mass/volume] in Serum or Plasma <0.7 MG/DL 0.2 - 1.3 [facility] Alkaline phosphatase [Enzymatic activity/volume] in Serum or Plasma 91 U/L 38 - 126 [facility] Aspartate aminotransferase [Enzymatic activity/volume] in Serum or Plasma 21 U/L 5 - 40 [facility] Alanine aminotransferase [Enzymatic activity/volume] in Seru m or Plasma 29 U/L 7 - 56 [facility] Anion gap 3 in Serum or Plasma 9.0 mmol/L 8.0 - 16.0 [facility] AGE 58 yrs [facility] al NON-AA GFR >60 mL/min [facility] ital AFR AMER GFR >60 mL/min [facility] Ho spital Male GFR In terprentation 20-49 yrs >60 mL/min Normal 50-59 yrs >56 mL/min Normal 60-69 yrs >49 mL/min Normal 70-79yrs >42 mL/min Normal 80 and above >35 mL/min Normal Female GFR Interpretation 20-39 yrs >60 mL/min Normal 40-49 yrs >58 mL/min Normal 50-59 yrs >51 mL/min Normal 60-69 yrs >45 mL/min Normal 70-79 yrs >39 mL/min Normal 80 and above >32 mL/min Normal ID Date Data Source [id number] 04/04/2019 10:41:00 AM EST [facility] Name Value Range Interpretation Code Description Data Ruth rce(s) Supporting Document(s) Lipase [Enzymatic activity/volume] in Serum or Plasma 24 U/L 13 - 60 [facility] ID Date Data Source [id number] 04/04/2019 10:38:00 AM [facility] Name Value Range Interpretation Code Description Data Ruth rce(s) Supporting Document(s) TROPONIN T 0.01 NG/ML 0.00 - 0.10 [facility] spital TROPONIN T0.1 ng/ml Recommended as the c linical threshold value forTroponin T. ID Date Data Source [id number] 04/04/2019 10:30:00 AM [facility] Name Value Range Interpretation Code Description Data Ruth rce(s) Supporting Document(s) Lactate [Moles/volume] in Serum or Plasma 1.9 MMOL/L 0.2 - 2.2 [facility] ID Date Data Source [id number] 04/04/2019 10:24:00 AM [facility] Name Value Range Interpretation Code Description Data Ruth rce(s) Supporting Document(s) CBC W/AUTOMATED DIFF [facility] COMPLETE BLOOD COUNT Leukocytes [#/volume] in Blood by Automated count 6.0 10^3/uL 4.2 - 1 1.0 [facility] Erythrocytes [#/volume] in Blood by Automated count 4.70 10^6/uL 4. 50 - 6.30 [facility] Hemoglobin [Mass/volume] in Blood 14.7 g/dL 14.0 - 16.0 [facility] Hematocrit [Volume Fraction] of Blood by Automated count 42.1 % 4 1.0 - 51.0 [facility] Erythrocyte mean corpuscular volume [Entitic volume] by Auto mated count 89.6 fL 80.0 - 94.0 [facility] Erythrocyte mean corpuscular hemoglobin [Entitic mass] by Automated count 31.3 pg 27.0 - 34.0 [facility] Erythrocyte mean corpuscular hemoglobin concentration [Mass/volume] by Automated count 34.9 g/dL 31.0 - 36.0 [facility] Erythrocyte distribution width [Ratio] by Automated count 11.9 % 11.5 - 14.8 [facility] Platelets [#/volume] in Blood by Automated count 330 10^3/uL 150 - 45 0 [facility] Platelet mean volume [Entitic volume] in Blood by Automated count 9.3 fL 7.4 - 10.4 [facility] Neutrophils/100 leukocytes in Blood by Automated count 58.1 % 37. 0 - 80.0 [facility] Lymphocytes/100 leukocytes in Blood by Manual count 30.2 % 25.0 - 40.0 [facility] Monocytes/100 leukocytes in Blood by Automated count 9.2 % 3.0 - 8.0 H [facility] Eosinophils/100 leukocytes in Blood by Automated count 1.3 % 0.0 - 7.0 [facility] Basophils/100 leukocytes in Blood by Automated count 1.0 % 0.0 - 2.0 [facility] %IG 0.2 % 0.0 - 0.0 H [facility] %NRBC 0.0 % 0.0 - 0.0 [facility] al Neutrophils [#/volume] in Blood by Automated count 3.46 10^3/uL 2.00 - 6.90 [facility] Lymphocytes [#/volume] in Blood by Automated count 1.80 10^3/uL 0.60 - 3.40 [facility] Monocytes [#/volume] in Blood by Automated count 0.55 10^3/uL 0.00 - 0.90 [facility] Eosinophils [#/volume] in Blood by Automated count 0.08 10^3/uL 0.00 - 0.70 [facility] Basophils [#/volume] in Blood by Automated count 0.06 10^3/uL 0.00 - 0.20 [facility] #IG 0.01 10^3/uL 0.00 - 0.10 [facility] H ospital #NRBC 0.00 10^3/uL 0.00 - 0.00 [facility] MANUAL DIFF NOT INDICATED [facility] RBC MORPH NOT INDICATED [facility] Ho spital ID Date Data Source [id number] 04/04/2019 10:30:00 AM EST [facility] Name Value Range Interpretation Code Description Data Urth rce(s) Supporting Document(s) URINALYSIS [facility] shimon URINALYSIS SOURCE R [facility] COLOR yellow NORMAL: Yellow [facility]sp[facility] CLARITY clear NORMAL: Clear [facility] spital Specific gravity of Urine by Test strip 1.020 1.001 - 1.030 [facility] pH 6.5 5 - 9 [facility] Glucose [Mass/volume] in Urine by Test strip [facility] Bilirubin.total [Presence] in Urine by Test strip NEG NORMAL: Negative [facility] Ketones [Presence] in Urine by Test strip 5 NORMAL: Negative A [facility] Protein [Mass/volume] in Urine by Test strip 30 NORMAL: Negat [facility] Nitrite [Presence] in Urine by Test strip NEG NORMAL: Negative [facility] BLOOD NEG NORMAL: Negative [facility] Leukocyte esterase [Presence] in Urine by Test strip NEG HONG L: Negative [facility] Urobilinogen [Mass/volume] in Urine by Test strip 1 less sheldon n 1.0 mg/dL [facility] MICROSCOPIC See Below [facility] ital EPITHELIAL FEW NORMAL: NONE SEEN [facility] Bacteria [Presence] in Urine sediment by Light microscopy Tr paolo NORMAL: NONE SEEN [facility] Mucus [Presence] in Urine sediment by Light microscopy 1+ NOR MAL: NONE SEEN [facility] Procedure
--- NOTE | 2020-03-29 12:41 | ROOR ---
Patient Name: Nadir Haji Procedure Date: 03/29/2020 12:18 PM Date of : 1960 Age: 59 Room: [facility] Gender: Male Note Status: Finalized Procedure: Total Colonoscopy to Cecum + Biopsy Polypectomy Indications: Screening for colorectal malignant neoplasm Providers: Dusty Carlton MD Referring MD: ELZBIETA RUFF MD Requesting Provider: Medicines: Monitored Anesthesia Care Complications: No immediate complications. Procedure: Pre-Anesthesia Assessment: - The heart rate, respiratory rate, oxygen saturations, blood pressure, adequacy of pulmonary ventilation, and response to care were monitored throughout the procedure. The Colonoscope was introduced through the anus and advanced to the cecum, identified by appendiceal orifice and ileocecal valve. The colonoscopy was performed without difficulty. The patient tolerated the procedure well. The quality of the bowel preparation was good. Findings: The perianal and digital rectal examinations were normal. Non-bleeding internal hemorrhoids were found during retroflexion. The hemorrhoids were small and Grade I (internal hemorrhoids that do not prolapse). Multiple sessile polyps were found in the rectum. The polyps were diminutive in size. These polyps were removed with a cold biopsy forceps. Resection and retrieval were complete. A small polyp was found in the ascending colon. The polyp was sessile. The polyp was removed with a jumbo cold forceps. Resection and retrieval were complete. The exam was otherwise without abnormality on direct and retroflexion views. Impression: - Non-bleeding internal hemorrhoids. - Multiple diminutive polyps in the rectum, removed with a cold biopsy forceps. Resected and retrieved. - One small polyp in the ascending colon, removed with a jumbo cold forceps. Resected and retrieved. - The examination was otherwise normal on direct and retroflexion views. - The exam was otherwise normal to the cecum. Recommendation: - Patient has a contact number available for emergencies. The signs and symptoms of potential delayed complications were discussed with the patient. Return to normal activities tomorrow. Written discharge instructions were provided to the patient. - High fiber diet. - Discharge patient to home. - Continue present medications. - Await pathology results. - Telephone GI clinic for pathology results in 1 week. - Repeat colonoscopy in 5 years for screening purposes. - Return to referring physician. - The findings and recommendations were discussed with the patient. Procedure Code(s): --- Professional --- 42653, Colonoscopy, flexible; with biopsy, single or multiple Diagnosis Code(s): --- Professional --- Z12.11, Encounter for screening for malignant neoplasm of colon K64.0, First degree hemorrhoids K62.1, Rectal polyp K63.5, Polyp of colon CPT copyright 2019 [employer]. All rights reserved. The codes documented in this report are preliminary and upon legal financial specialist review may be revised to meet current compliance requirements. Dusty Carlton MD Dusty Carlton MD 03/29/2020 12:41:20 PM Electronically signed by Dusty Carlton MD Number of Addenda: 0 Note Initiated On: 03/29/2020 12:18 PM Estimated Blood Loss: Estimated blood loss: none.
[2020-03-29 13:00] VITALS: BP 174/98
== END 2020-03-29 13:11 | disposition home or self-care (01) ==
LOC: M OPP 10:59
PROVIDERS: ATTEND Internal Medicine Gastroenterology
DX: Z12.11 Encounter for screening for malignant neoplasm of colon (principal); K62.1 Rectal polyp; D12.2 Benign neoplasm of ascending colon; K64.0 First degree hemorrhoids; I10 Essential (primary) hypertension; F17.210 Nicotine dependence, cigarettes, uncomplicated; Z79.899 Other long term (current) drug therapy

== ENCOUNTER → 2023-04-08 | Outpatient (CLI) | payer OTHER ==
[~2023-04-08] MED LIST changes: +LIDOCAINE 1% MDV 20ML VIAL As Ordered ONE; -LIDOCAINE 2% 100MG/5ML SDV (FOR ANES.) As Ordered ONE; +LISI10TA22; +MAGN400T33; -NS 1,000 ML IV ONE; +POTA-298; -propofoL 200 MG/20 ML VIAL As Ordered ONE
[2023-04-08 12:05] VITALS: TEMP 98.9
[2023-04-08 12:35] LABS: BASO # 0.1 10^3/uL (0.0-0.2); BASO % 1.4 % (0.0-1.0); EOS # 0.1 10^3/uL (0.0-0.5); EOS % 0.8 % (0.0-3.0); HEMATOCRIT 45.3 % (42.0-52.0); HEMOGLOBIN 15.8 g/dl (13.5-17.5); LYMPH # 2.4 10^3/uL (1.5-5.0); LYMPH % 24.9 % (24.0-44.0); MEAN CORPUSCULAR HEMOGLOBIN 32.5 pg (27.0-33.0); MEAN CORPUSCULAR HGB CONC 34.9 g/dl (32.0-36.5); MEAN CORPUSCULAR VOLUME 93.2 fl (80.0-96.0); MONO # 1.5 10^3/uL (0.0-0.8); MONO % 15.3 % (2.0-8.0); NEUTROPHILS # 5.5 10^3/uL (1.5-8.5); NEUTROPHILS % 57.1 % (36.0-66.0); PLATELET COUNT, AUTOMATED 224 10^3/uL (150-450); RED BLOOD COUNT 4.86 10^6/uL (4.30-6.10); WHITE BLOOD COUNT 9.6 10^3/uL (4.0-10.0)
[2023-04-08 12:51] LABS: INR 0.95; PARTIAL THROMBOPLASTIN TIME 27.3 SECONDS (24.8-34.2); PROTHROMBIN TIME 12.4 SECONDS (12.5-14.5)
[2023-04-08 13:29] VITALS: BP 183/89; O2SAT 99
== END ==
LOC: M IRPRO 11:46
PROVIDERS: ATTEND Specialist
DX: R59.0 Localized enlarged lymph nodes (principal)

== ENCOUNTER → 2023-05-01 | Outpatient (CLI) | payer OTHER ==
[~2023-05-01] MED LIST changes: -LIDOCAINE 1% MDV 20ML VIAL As Ordered ONE; +MINO100C4
== END ==
LOC: M RAD 11:36
PROVIDERS: ATTEND Internal Medicine Hematology & Oncology
DX: R59.0 Localized enlarged lymph nodes (principal)

== ENCOUNTER 2023-05-22 10:48 | Inpatient (IN) | payer OTHER ==
[~2023-05-22] VITALS: Ht 175.3 cm; Wt 78.1 kg
[~2023-05-22 10:48] MED LIST changes: -LISI10TA22; +LISI10TA22 PO; -MINO100C4; +MINO100C4 PO
[2023-05-22 11:25] LABS: BASO # 0.1 10^3/uL (0.0-0.2); BASO % 0.4 % (0.0-1.0); EOS # 1.9 10^3/uL (0.0-0.5); EOS % 10.2 % (0.0-3.0); HEMATOCRIT 22.6 % (42.0-52.0); HEMOGLOBIN 7.8 g/dl (13.5-17.5); LYMPH # 2.3 10^3/uL (1.5-5.0); MEAN CORPUSCULAR HEMOGLOBIN 34.4 pg (27.0-33.0); MEAN CORPUSCULAR HGB CONC 34.5 g/dl (32.0-36.5); MEAN CORPUSCULAR VOLUME 99.6 fl (80.0-96.0); MONO # 1.2 10^3/uL (0.0-0.8); MONO % 6.1 % (2.0-8.0); NEUTROPHILS # 12.7 10^3/uL (1.5-8.5); NEUTROPHILS % 67.6 % (36.0-66.0); PLATELET COUNT, AUTOMATED 408 10^3/uL (150-450); RED BLOOD COUNT 2.27 10^6/uL (4.30-6.10); WHITE BLOOD COUNT 18.9 10^3/uL (4.0-10.0)
[2023-05-22 11:39] LABS: INR 1.12; PROTHROMBIN TIME 14.1 SECONDS (12.5-14.5)
[2023-05-22] MEDS ORDERED: ISOVUE-370 76% 100ML VIAL As Ordered ONE (11:41)
[2023-05-22 11:47] LABS: AMYLASE 75 U/L (30-118); CPK CREATINE PHOSPHOKINASE 26 U/L (46-171)
[2023-05-22 11:48] LABS: ALBUMIN 1.5 G/DL (3.2-5.2); ALKALINE PHOSPHATASE 445 U/L (46-116); ALT/SGPT 53 U/L (7.0-40); AST/SGOT 68 U/L (<34); BILIRUBIN,TOTAL 1.5 MG/DL (0.3-1.2); BLOOD UREA NITROGEN 26 MG/DL (9-23); CALCIUM LEVEL 8.3 MG/DL (8.3-10.6); CARBON DIOXIDE LEVEL 21 MMOL/L (20-31); CHLORIDE LEVEL 101 MMOL/L (98-107); CK-MB VALUE MASS < 1.0 NG/ML (<3.6); CREATININE FOR GFR 1.04 MG/DL (0.70-1.30); GLOMERULAR FILTRATION RATE > 60.0 (>49); GLUCOSE, FASTING 116 MG/DL (74-106); MB/CK RELATIVE INDEX 3.84 (< OR =4); POTASSIUM SERUM 4.7 MMOL/L (3.5-5.1); SODIUM LEVEL 128 MMOL/L (136-145); TOTAL PROTEIN 6.3 G/DL (5.7-8.2)
[2023-05-22 12:00] LABS: PROCALCITONIN 0.93 ng/ml
[2023-05-22] MEDS: NS 2,220 ML in IV 1 EA IV ONE (12:28)
[2023-05-22] MEDS: cefTRIAXone SOD 2 GM in D5W MINI-BAG PLUS 50 ML IV ONE (12:43)
[2023-05-22] MEDS ORDERED: HOME MED LIST COMPLETE! XX SCH (13:15)
[2023-05-22] MEDS ORDERED: TRIA1CR80 TOP (13:15)
[2023-05-22] MEDS ORDERED: CYAN-1 PO (13:15)
[2023-05-22] MEDS ORDERED: IBUP-1764 PO (13:15)
[2023-05-22] MEDS ORDERED: ACETAMINOPHEN TAB 650MG DOSE (2X325MG) PO PRN (14:20)
[2023-05-22] MEDS ORDERED: MOM 30ML SUSPENSION UDC PO PRN (14:20)
[2023-05-22] MEDS ORDERED: THIAMINE 200MG 2ML VIAL IV SCH (14:20)
[2023-05-22] MEDS ORDERED: LORazepam 2 MG TAB PO PRN (14:20)
[2023-05-22] MEDS: FOLIC ACID 1MG TAB PO SCH (15:08)
[2023-05-22] MEDS: THIAMINE INJection 500 MG in NS 100 ML IV SCH (15:08)
[2023-05-22] MEDS: MULTIVITAMINS/MINERALS THERAP 1 TAB PO SCH (15:08)
[2023-05-22] MEDS: DEXTROSE 50% 50ML SYRINGE IV ONE (15:08)
[2023-05-22 15:38] LABS: D-DIMER QUANT 2.11 ug/mL (<0.5); INR 1.16; PARTIAL THROMBOPLASTIN TIME 32.4 SECONDS (24.8-34.2); PROTHROMBIN TIME 14.4 SECONDS (12.5-14.5)
[2023-05-22 15:46] LABS: LDH LACTATE DEHYDROGENASE 207 U/L (120-246)
[2023-05-22 15:47] LABS: PHOSPHORUS LEVEL 4.1 MG/DL (2.4-5.1)
[2023-05-22 15:50] VITALS: BP 111/66; TEMP 97.8; O2SAT 95
[2023-05-22 16:09] VITALS: BP_SYST 112; BP_SYST 117; BP_DIAS 67; BP_DIAS 69; TEMP 98.3; TEMP 99.5; O2SAT 96; O2SAT 98
[2023-05-22 16:14] LABS: HIV 1&2 SCREEN NEGATIVE (NEGATIVE)
[2023-05-22 16:21] LABS: HEPATITIS B CORE ANTIBODY IGM NEGATIVE (NEGATIVE)
[2023-05-22 16:23] LABS: HEPATITIS C VIRUS ABY INDEX 0.07 INDEX (<0.8)
[2023-05-22 17:11] LABS: AMPHETAMINES LEVEL URINE NEGATIVE (NEGATIVE); BARBITURATES URINE NEGATIVE (NEGATIVE); BENZODIAZEPINES URINE NEGATIVE (NEGATIVE); COCAINE METABOLITE URINE NEGATIVE (NEGATIVE); METHADONE URINE NEGATIVE (NEGATIVE); OPIATES URINE NEGATIVE (NEGATIVE); PHENCYCLIDINE URINE NEGATIVE (NEGATIVE)
[2023-05-22 17:28] LABS: CANNABINOIDS URINE POSITIVE (NEGATIVE)
[2023-05-22 17:38] VITALS: BP 123/66; TEMP 99.6; O2SAT 100
[2023-05-22] MEDS: LR 1,000 ML IV ONE (17:43)
[2023-05-22] MEDS: DOXYCYCLINE HYCLATE 100 MG in D5W MINI-BAG PLUS 100 ML IV SCH (17:43)
[2023-05-22] MEDS ORDERED: OXAZEPAM 15MG CAP PO SCH (18:00)
[2023-05-22] MEDS: OXAZEPAM 15MG CAP PO SCH (18:57)
[2023-05-22] MEDS: PIPERACILLIN/TAZOBACTAM SOD 4.5 GM in D5W MINI-BAG PLUS 50 ML IV SCH (19:00)
[2023-05-22 19:28] LABS: HEMATOCRIT 22.5 % (42.0-52.0); HEMOGLOBIN 7.7 g/dl (13.5-17.5); MEAN CORPUSCULAR HEMOGLOBIN 32.4 pg (27.0-33.0); MEAN CORPUSCULAR HGB CONC 34.2 g/dl (32.0-36.5); MEAN CORPUSCULAR VOLUME 94.5 fl (80.0-96.0); PLATELET COUNT, AUTOMATED 289 10^3/uL (150-450); RED BLOOD COUNT 2.38 10^6/uL (4.30-6.10); WHITE BLOOD COUNT 13.9 10^3/uL (4.0-10.0)
[2023-05-22 19:38] LABS: ALBUMIN 1.1 G/DL (3.2-5.2); BLOOD UREA NITROGEN 26 MG/DL (9-23); CALCIUM LEVEL 7.1 MG/DL (8.3-10.6); CARBON DIOXIDE LEVEL 22 MMOL/L (20-31); CHLORIDE LEVEL 106 MMOL/L (98-107); CREATININE FOR GFR 0.93 MG/DL (0.70-1.30); GLOMERULAR FILTRATION RATE > 60.0 (>49); GLUCOSE, FASTING 109 MG/DL (74-106); PHOSPHORUS LEVEL 4.2 MG/DL (2.4-5.1); POTASSIUM SERUM 4.1 MMOL/L (3.5-5.1); SODIUM LEVEL 131 MMOL/L (136-145)
[2023-05-22 21:26] VITALS: BP 138/81; TEMP 98.2; O2SAT 97
[2023-05-22 21:52] VITALS: BP 138/81
[2023-05-22] MEDS: DOCUSATE SODIUM 100MG CAPSULE PO SCH (22:14)
[2023-05-23] VITALS (17 sets, daily range): BP systolic 103–170; BP diastolic 59–89; TEMP 97.5–98.5; O2SAT 91–99
[2023-05-23 00:33] LABS: HEMATOCRIT 22.5 % (42.0-52.0); HEMOGLOBIN 7.9 g/dl (13.5-17.5); MEAN CORPUSCULAR HEMOGLOBIN 32.9 pg (27.0-33.0); MEAN CORPUSCULAR HGB CONC 35.1 g/dl (32.0-36.5); MEAN CORPUSCULAR VOLUME 93.8 fl (80.0-96.0); PLATELET COUNT, AUTOMATED 312 10^3/uL (150-450)
[2023-05-23 06:25] LABS: LDH LACTATE DEHYDROGENASE 244 U/L (120-246)
[2023-05-23 06:27] LABS: ALBUMIN 1.2 G/DL (3.2-5.2); ALKALINE PHOSPHATASE 345 U/L (46-116); ALT/SGPT 42 U/L (7.0-40); AST/SGOT 60 U/L (<34); BILIRUBIN,DIRECT 0.8 MG/DL (<0.4); BILIRUBIN,TOTAL 1.3 MG/DL (0.3-1.2); BLOOD UREA NITROGEN 25 MG/DL (9-23); CALCIUM LEVEL 7.4 MG/DL (8.3-10.6); CARBON DIOXIDE LEVEL 20 MMOL/L (20-31); CHLORIDE LEVEL 106 MMOL/L (98-107); CREATININE FOR GFR 0.91 MG/DL (0.70-1.30); GLOMERULAR FILTRATION RATE > 60.0 (>49); GLUCOSE, FASTING 87 MG/DL (74-106); MAGNESIUM LEVEL 1.5 MG/DL (1.8-2.4); PHOSPHORUS LEVEL 3.9 MG/DL (2.4-5.1); POTASSIUM SERUM 3.8 MMOL/L (3.5-5.1); SODIUM LEVEL 130 MMOL/L (136-145); TOTAL PROTEIN 5.2 G/DL (5.7-8.2)
[2023-05-23 08:00] LABS: BASO # 0.1 10^3/uL (0.0-0.2); BASO % 0.5 % (0.0-1.0); EOS # 2.4 10^3/uL (0.0-0.5); EOS % 16.4 % (0.0-3.0); HEMATOCRIT 23.1 % (42.0-52.0); LYMPH # 1.9 10^3/uL (1.5-5.0); LYMPH % 12.9 % (24.0-44.0); MEAN CORPUSCULAR HEMOGLOBIN 32.9 pg (27.0-33.0); MEAN CORPUSCULAR HGB CONC 34.6 g/dl (32.0-36.5); MEAN CORPUSCULAR VOLUME 95.1 fl (80.0-96.0); MONO % 6.6 % (2.0-8.0); NEUTROPHILS % 61.2 % (36.0-66.0); PLATELET COUNT, AUTOMATED 314 10^3/uL (150-450); RED BLOOD COUNT 2.43 10^6/uL (4.30-6.10); WHITE BLOOD COUNT 14.7 10^3/uL (4.0-10.0)
[2023-05-23] MEDS ORDERED: VANCOMYCIN HCL 1,000 MG, VIAL MATE ADAPTER 1 EACH in D5W 250 ML IV SCH (10:05)
[2023-05-23] MEDS: VANCOMYCIN HCL 750 MG, VIAL MATE ADAPTER 1 EACH in D5W 250 ML IV ONE ×2 (11:29→12:44)
[2023-05-23 12:22] LABS: HEMATOCRIT 21.9 % (42.0-52.0); HEMOGLOBIN 7.6 g/dl (13.5-17.5); MEAN CORPUSCULAR HEMOGLOBIN 33.3 pg (27.0-33.0); MEAN CORPUSCULAR HGB CONC 34.7 g/dl (32.0-36.5); MEAN CORPUSCULAR VOLUME 96.1 fl (80.0-96.0); PLATELET COUNT, AUTOMATED 301 10^3/uL (150-450); RED BLOOD COUNT 2.28 10^6/uL (4.30-6.10); WHITE BLOOD COUNT 13.9 10^3/uL (4.0-10.0)
[2023-05-23 14:04] LABS: IRON (FE) 78 UG/DL (65-175); TOTAL IRON BINDING CAPACITY 150 UG/DL (250-425)
[2023-05-23 14:05] LABS: FOLATE 6.66 NG/ML (>5.4); VITAMIN B12 LEVEL 497 PG/ML (211-911)
[2023-05-23 14:06] LABS: FERRITIN 789.9 NG/ML (10.5-307.3)
[2023-05-23 18:40] LABS: CHOLESTEROL LEVEL 117 MG/DL (<200); CHOLESTEROL RISK RATIO 23 (<5); HDL CHOLESTEROL 4.99999 MG/DL (>40); LDL CHOLESTEROL 95.00001 MG/DL (<100); NON-HDL-C 112.00001 MG/DL; TRIGLYCERIDES LEVEL 85 MG/DL (<150)
[2023-05-23 18:47] LABS: HEMATOCRIT 23.1 % (42.0-52.0); MEAN CORPUSCULAR HEMOGLOBIN 33.1 pg (27.0-33.0); MEAN CORPUSCULAR HGB CONC 34.6 g/dl (32.0-36.5); MEAN CORPUSCULAR VOLUME 95.5 fl (80.0-96.0); PLATELET COUNT, AUTOMATED 324 10^3/uL (150-450); RED BLOOD COUNT 2.42 10^6/uL (4.30-6.10); WHITE BLOOD COUNT 14.2 10^3/uL (4.0-10.0)
[2023-05-23] MEDS ORDERED: VANCOMYCIN HCL 750 MG, VIAL MATE ADAPTER 1 EACH in D5W 250 ML IV SCH (21:00)
[2023-05-23] MEDS ORDERED: DOXYCYCLINE HYCLATE 100MG TABLET PO SCH (21:00)
[2023-05-24] VITALS (12 sets, daily range): BP systolic 115–157; BP diastolic 61–85; TEMP 97.3–97.9; O2SAT 94–99
[2023-05-24 03:52] LABS: BASO # 0.1 10^3/uL (0.0-0.2); BASO % 0.6 % (0.0-1.0); EOS # 3.1 10^3/uL (0.0-0.5); HEMATOCRIT 30.3 % (42.0-52.0); LYMPH % 13.4 % (24.0-44.0); MEAN CORPUSCULAR HGB CONC 35.3 g/dl (32.0-36.5); MEAN CORPUSCULAR VOLUME 93.5 fl (80.0-96.0); MONO # 1.1 10^3/uL (0.0-0.8); MONO % 7.1 % (2.0-8.0); NEUTROPHILS # 8.3 10^3/uL (1.5-8.5); NEUTROPHILS % 56.1 % (36.0-66.0); PLATELET COUNT, AUTOMATED 261 10^3/uL (150-450); RED BLOOD COUNT 3.24 10^6/uL (4.30-6.10); WHITE BLOOD COUNT 14.8 10^3/uL (4.0-10.0)
[2023-05-24 04:16] LABS: LDH LACTATE DEHYDROGENASE 239 U/L (120-246)
[2023-05-24 04:19] LABS: EOS % 20.8 % (0.0-3.0); HEMOGLOBIN 10.7 g/dl (13.5-17.5)
[2023-05-24 04:24] LABS: ERYTHROCYTE SEDIMENTATION RATE 45 mm/hr (0-20)
[2023-05-24 04:26] LABS: COMPLEMENT C3 83.2 MG/DL (90.0-170.0); COMPLEMENT C4 14.7 MG/DL (12-36); RHEUMATOID FACTOR QUANT 10.5 IU/ML (<14)
[2023-05-24 04:32] LABS: PROCALCITONIN 0.49 ng/ml
[2023-05-24 04:50] LABS: ALBUMIN 1.3 G/DL (3.2-5.2); ALKALINE PHOSPHATASE 319 U/L (46-116); ALT/SGPT 40 U/L (7.0-40); AST/SGOT 52 U/L (<34); BILIRUBIN,TOTAL 1.6 MG/DL (0.3-1.2); BLOOD UREA NITROGEN 21 MG/DL (9-23); CALCIUM LEVEL 7.1 MG/DL (8.3-10.6); CARBON DIOXIDE LEVEL 20 MMOL/L (20-31); CHLORIDE LEVEL 107 MMOL/L (98-107); CREATININE FOR GFR 0.85 MG/DL (0.70-1.30); GLOMERULAR FILTRATION RATE > 60.0 (>49); GLUCOSE, FASTING 86 MG/DL (74-106); MAGNESIUM LEVEL 1.5 MG/DL (1.8-2.4); POTASSIUM SERUM 3.5 MMOL/L (3.5-5.1); SODIUM LEVEL 134 MMOL/L (136-145); TOTAL PROTEIN 5.1 G/DL (5.7-8.2)
[2023-05-24] MEDS: MAG SULF 1GM/100ML (MAG RUN) 1 GM in IV 1 EA IV SCH (08:33)
[2023-05-24] MEDS: MAGNESIUM OXIDE 400MG TAB (MAG-OX) PO SCH (08:34)
[2023-05-24] MEDS: DOXYCYCLINE HYCLATE 100MG TABLET PO SCH (08:34)
[2023-05-24 12:37] LABS: HEMATOCRIT 32.9 % (42.0-52.0); HEMOGLOBIN 11.4 g/dl (13.5-17.5); MEAN CORPUSCULAR HEMOGLOBIN 32.6 pg (27.0-33.0); MEAN CORPUSCULAR HGB CONC 34.7 g/dl (32.0-36.5); PLATELET COUNT, AUTOMATED 303 10^3/uL (150-450); WHITE BLOOD COUNT 13.1 10^3/uL (4.0-10.0)
[2023-05-24 13:12] LABS: CYTOMEGALOVIRUS IgM ANTIBODY <30.0 AU/mL (0.0-29.9)
[2023-05-25] VITALS: BP 125/75; TEMP 97.6; O2SAT 99
[2023-05-25 03:40] VITALS: BP 127/78; TEMP 97.4; O2SAT 97
[2023-05-25 04:42] VITALS: BP 127/78; TEMP 97.4; O2SAT 97
[2023-05-25 05:10] LABS: CRYOGLOBULINS NEGATIVE (NEGATIVE)
[2023-05-25 05:45] LABS: BASO # 0.1 10^3/uL (0.0-0.2); BASO % 0.8 % (0.0-1.0); EOS # 2.3 10^3/uL (0.0-0.5); EOS % 18.9 % (0.0-3.0); HEMATOCRIT 31.7 % (42.0-52.0); HEMOGLOBIN 10.9 g/dl (13.5-17.5); LYMPH # 1.6 10^3/uL (1.5-5.0); LYMPH % 13.2 % (24.0-44.0); MEAN CORPUSCULAR HEMOGLOBIN 32.3 pg (27.0-33.0); MEAN CORPUSCULAR HGB CONC 34.4 g/dl (32.0-36.5); MEAN CORPUSCULAR VOLUME 94.1 fl (80.0-96.0); MONO # 0.9 10^3/uL (0.0-0.8); MONO % 7.2 % (2.0-8.0); NEUTROPHILS # 7.1 10^3/uL (1.5-8.5); NEUTROPHILS % 58.3 % (36.0-66.0); PLATELET COUNT, AUTOMATED 291 10^3/uL (150-450); RED BLOOD COUNT 3.37 10^6/uL (4.30-6.10); WHITE BLOOD COUNT 12.2 10^3/uL (4.0-10.0)
[2023-05-25 06:11] LABS: ALBUMIN 1.2 G/DL (3.2-5.2); ALKALINE PHOSPHATASE 300 U/L (46-116); ALT/SGPT 34 U/L (7.0-40); AST/SGOT 53 U/L (<34); BILIRUBIN,DIRECT 0.7 MG/DL (<0.4); BILIRUBIN,TOTAL 1.1 MG/DL (0.3-1.2); BLOOD UREA NITROGEN 18 MG/DL (9-23); CALCIUM LEVEL 7.3 MG/DL (8.3-10.6); CARBON DIOXIDE LEVEL 21 MMOL/L (20-31); CHLORIDE LEVEL 107 MMOL/L (98-107); CREATININE FOR GFR 0.89 MG/DL (0.70-1.30); GLOMERULAR FILTRATION RATE > 60.0 (>49); GLUCOSE, FASTING 84 MG/DL (74-106); MAGNESIUM LEVEL 1.8 MG/DL (1.8-2.4); PHOSPHORUS LEVEL 3.4 MG/DL (2.4-5.1); POTASSIUM SERUM 3.5 MMOL/L (3.5-5.1); SODIUM LEVEL 136 MMOL/L (136-145); TOTAL PROTEIN 5.2 G/DL (5.7-8.2)
[2023-05-25] MEDS: LevoFLOXacin 750 MG TABLET PO SCH (08:06)
[2023-05-25 08:18] VITALS: BP 127/73; TEMP 97.4; O2SAT 98
[2023-05-25] MEDS ORDERED: THIA100TA PO (11:58)
[2023-05-25] MEDS ORDERED: MAGN400T2 PO (11:58)
[2023-05-25] MEDS ORDERED: FOLI1TAB11 PO (11:58)
[2023-05-25] MEDS ORDERED: LEVO1TAB40 PO (11:58)
== END 2023-05-25 13:36 | disposition home or self-care (01) | DRG 808 ==
LOC: M ED 10:48 → M ED INP 14:20 → M PCU 21:17
PROVIDERS: ADMIT Student in an Organized Health Care Education/Training Program; ATTEND Student in an Organized Health Care Education/Training Program
PROC: 30233N1 Transfusion of Nonautologous Red Blood Cells into Peripheral Vein, Percutaneous Approach (ICD-10-PCS; principal; 2023-05-22)
PROC: B246ZZZ Ultrasonography of Right and Left Heart (ICD-10-PCS; 2023-05-23)
DX: D59.9 Acquired hemolytic anemia, unspecified (principal); G93.41 Metabolic encephalopathy; J18.9 Pneumonia, unspecified organism; E87.20 Acidosis, unspecified; E87.1 Hypo-osmolality and hyponatremia; R18.8 Other ascites; F10.239 Alcohol dependence with withdrawal, unspecified; J91.8 Pleural effusion in other conditions classified elsewhere; E88.09 Other disorders of plasma-protein metabolism, not elsewhere classified; I10 Essential (primary) hypertension; M10.9 Gout, unspecified; M48.061 Spinal stenosis, lumbar region without neurogenic claudication; R74.01 Elevation of levels of liver transaminase levels; R59.1 Generalized enlarged lymph nodes; Z79.899 Other long term (current) drug therapy